=== PATIENT | female | born 1960 | race Caucasian/White ===

== ENCOUNTER 2018-05-20 10:42 | Inpatient (IN) ==
[2018-05-20] MEDS ORDERED: ACETAMINOPHEN 325 MG TABLET PO PRN (11:16)
[2018-05-20] MEDS ORDERED: ONDANSETRON 4 MG/2 ML VIAL IV PRN (11:16)
[2018-05-20] MEDS: ALBUTEROL/IPRATROPIUM 3 ML NEB RESP TX SCH ×2 (12:22→20:24)
[2018-05-20 13:11] LABS: Basophils # 0.1 10*3/uL (0.0-0.2); Basophils % 0.5 % (0.0-0.8); Eosinophils # 0.1 10*3/uL (0.0-0.87); Eosinophils % 0.3 % (0.00-10.9); Hematocrit 46.3 VOL% (35.7-47.0); Hemoglobin 14.9 GM/DL (12.0-16.0); Immature Granulocytes % 3.5 %; Immature Granulocytes Absolute 0.78 #; Lymphocytes # 3.3 10*3/uL (1.4-4.0); Lymphocytes % 14.6 % (21.3-54.2); Mean Corpuscular HGB Conc 32.2 GM/DL (32-36); Mean Corpuscular Hemoglobin 31 PG (27-34); Mean Corpuscular Volume 95.1 FL (87-102); Mean Platelet Volume 9.7 FL (9.6-12.0); Monocytes # 1.6 10*3/uL (0.11-0.8); Monocytes % 7.2 % (1.7-12.7); Neutrophils # 16.6 10*3/uL (1.4-7.4); Neutrophils % 73.9 % (38.7-73.9); Platelet Count 334 T/CUMM (130-400); Red Blood Count 4.87 MC/CUMM (3.8-5.5); White Blood Count 22.4 T/CUMM (4-12)
[2018-05-20 13:45] LABS: Albumin 3.8 G/DL (3.4-5.0); Bilirubin,Total 0.7 MG/DL (0.2-1.0); Calcium 8.7 MG/DL (8.5-10.1); Osmolality,Calculated 277.5 MOS/KG (273-304); Potassium 3.6 MMOL/L (3.5-5.1); Total Protein 7.3 G/DL (6.4-8.3)
[2018-05-20] MEDS: SODIUM CHLORIDE 0.9% 1,000 ML IV SCH ×2 (14:15→23:04)
[2018-05-20] MEDS: methylPREDNISolone SOD SUC 40 MG/1 ML VIAL IV SCH ×2 (14:16→21:18)
[2018-05-20] MEDS: cefTAZidime 1,000 MG in SYRINGE 1 EACH IV SCH ×2 (15:59→23:04)
[2018-05-20] MEDS: BENZONATATE 100 MG CAPSULE PO SCH ×2 (16:00→21:18)
[2018-05-20] MEDS ORDERED: POLYETHYLENE GLYCOL POWDER 17 GM PACK PO PRN (16:26)
[2018-05-20] MEDS ORDERED: ALPRAZolam 0.25 MG TABLET PO PRN (16:26)
[2018-05-20] MEDS ORDERED: CYCLOBENZAPRINE 10 MG TABLET PO PRN (16:26)
[2018-05-20] MEDS ORDERED: ALBUTEROL 2.5 MG/3 ML NEB RESP TX PRN (16:26)
[2018-05-20] MEDS: DEXTROMETHORPHAN ER 6 MG/ML 90 ML/BOTTLE PO PRN (16:28)
[2018-05-20 18:27] LABS: Lymphocytes 16 % (20-55); Segmented Neutrophils 79 % (50-85); Total Cells Counted 100
[2018-05-20 18:32] LABS: Anisocytosis Slight
[2018-05-20 18:33] LABS: Macrocytosis Slight
[2018-05-20 18:34] LABS: Polychromasia Slight
[2018-05-20 18:35] LABS: Platelet Estimate Normal
[2018-05-20] MEDS ORDERED: BENZONATATE 100 MG CAPSULE PO SCH (21:00)
[2018-05-20] MEDS: TOPIRAMATE 100 MG TABLET PO SCH (21:18)
[2018-05-20] MEDS: DOCUSATE SODIUM 100 MG CAPSULE PO SCH (21:18)
[2018-05-20] MEDS: THEOPHYLLINE ER 300 MG TABLET PO SCH (21:18)
[2018-05-20] MEDS: POTASSIUM CHLORIDE 10 MEQ TABLET PO SCH (21:18)
[2018-05-20] MEDS: ACETAMINOPHEN 325 MG TABLET PO PRN (23:07)
[2018-05-21] MEDS: ALBUTEROL/IPRATROPIUM 3 ML NEB RESP TX SCH ×4 (00:39→19:07)
[2018-05-21] MEDS: methylPREDNISolone SOD SUC 40 MG/1 ML VIAL IV SCH ×3 (05:15→22:24)
[2018-05-21] MEDS: SODIUM CHLORIDE 0.9% 1,000 ML IV SCH ×3 (06:39→23:55)
[2018-05-21] MEDS: DEXTROMETHORPHAN ER 6 MG/ML 90 ML/BOTTLE PO PRN (06:40)
[2018-05-21] MEDS: CALCIUM (CITRATE)/VITAMIN D 200 MG-125 UNIT TABLET PO SCH (08:55)
[2018-05-21] MEDS: ESTRADIOL 2 MG TABLET PO SCH (08:56)
[2018-05-21] MEDS: BENZONATATE 100 MG CAPSULE PO SCH ×3 (08:56→22:26)
[2018-05-21] MEDS: DOCUSATE SODIUM 100 MG CAPSULE PO SCH ×2 (08:57→22:26)
[2018-05-21] MEDS: POTASSIUM CHLORIDE 10 MEQ TABLET PO SCH ×2 (08:58→22:26)
[2018-05-21] MEDS: FLUoxetine 20 MG CAPSULE PO SCH (08:58)
[2018-05-21] MEDS: TOPIRAMATE 100 MG TABLET PO SCH ×2 (08:58→22:26)
[2018-05-21] MEDS: ASCORBIC ACID 500 MG TABLET PO SCH (08:58)
[2018-05-21] MEDS: PANTOPRAZOLE 40 MG TABLET PO SCH (08:58)
[2018-05-21] MEDS: THEOPHYLLINE ER 300 MG TABLET PO SCH ×2 (09:00→22:26)
[2018-05-21] MEDS ORDERED: MIRABEGRON PO SCH (09:00)
[2018-05-21] MEDS ORDERED: PANTOPRAZOLE 40 MG TABLET PO SCH (09:00)
[2018-05-21] MEDS ORDERED: MOMETASONE 50 MCG NASAL SPRAY 17 GM BOTTLE BOTH NARES SCH (09:00)
[2018-05-21] MEDS: MOMETASONE 50 MCG NASAL SPRAY 17 GM BOTTLE BOTH NARES SCH (09:03)
[2018-05-21] MEDS: cefTAZidime 1,000 MG in SYRINGE 1 EACH IV SCH ×2 (09:03→16:27)
[2018-05-21] MEDS ORDERED: ALUMINUM/MAGNES/SIMETH MAX STR 30 ML UDCUP PO PRN (18:38)
[2018-05-22] MEDS: ALBUTEROL/IPRATROPIUM 3 ML NEB RESP TX SCH ×4 (00:11→19:11)
[2018-05-22] MEDS: cefTAZidime 1,000 MG in SYRINGE 1 EACH IV SCH ×3 (00:53→16:41)
[2018-05-22 05:11] LABS: Basophils # 0.1 10*3/uL (0.0-0.2); Basophils % 0.4 % (0.0-0.8); Hematocrit 42.2 VOL% (35.7-47.0); Hemoglobin 13.4 GM/DL (12.0-16.0); Immature Granulocytes % 3.8 %; Immature Granulocytes Absolute 0.64 #; Lymphocytes % 6.2 % (21.3-54.2); Mean Corpuscular HGB Conc 31.8 GM/DL (32-36); Mean Corpuscular Hemoglobin 31 PG (27-34); Mean Corpuscular Volume 96.8 FL (87-102); Mean Platelet Volume 10.1 FL (9.6-12.0); Monocytes # 0.7 10*3/uL (0.11-0.8); Monocytes % 4.1 % (1.7-12.7); Neutrophils # 14.3 10*3/uL (1.4-7.4); Neutrophils % 85.5 % (38.7-73.9); Platelet Count 280 T/CUMM (130-400); Red Blood Count 4.36 MC/CUMM (3.8-5.5); Red Cell Distribution Width 13.2 % (9.3-17.3); White Blood Count 16.8 T/CUMM (4-12)
[2018-05-22 05:32] LABS: Calcium 8.1 MG/DL (8.5-10.1); Osmolality,Calculated 279.5 MOS/KG (273-304)
[2018-05-22 05:57] LABS: Band Neutrophils 1 % (0-10); Lymphocytes 5 % (20-55); Segmented Neutrophils 89 % (50-85); Total Cells Counted 100
[2018-05-22 05:58] LABS: Macrocytosis Slight
[2018-05-22 05:59] LABS: Hypochromasia Slight; Platelet Estimate Normal
[2018-05-22] MEDS: methylPREDNISolone SOD SUC 40 MG/1 ML VIAL IV SCH ×3 (06:33→20:57)
[2018-05-22] MEDS: SODIUM CHLORIDE 0.9% 1,000 ML IV SCH (06:35)
[2018-05-22] MEDS: CALCIUM (CITRATE)/VITAMIN D 200 MG-125 UNIT TABLET PO SCH (08:43)
[2018-05-22] MEDS: BENZONATATE 100 MG CAPSULE PO SCH ×3 (08:43→20:55)
[2018-05-22] MEDS: THEOPHYLLINE ER 300 MG TABLET PO SCH ×2 (08:43→20:55)
[2018-05-22] MEDS: POTASSIUM CHLORIDE 10 MEQ TABLET PO SCH ×2 (08:43→20:56)
[2018-05-22] MEDS: TOPIRAMATE 100 MG TABLET PO SCH ×2 (08:44→20:55)
[2018-05-22] MEDS: FLUoxetine 20 MG CAPSULE PO SCH (08:44)
[2018-05-22] MEDS: ASCORBIC ACID 500 MG TABLET PO SCH (08:44)
[2018-05-22] MEDS: DOCUSATE SODIUM 100 MG CAPSULE PO SCH ×2 (08:44→20:56)
[2018-05-22] MEDS: ESTRADIOL 2 MG TABLET PO SCH (08:44)
[2018-05-22] MEDS: PANTOPRAZOLE 40 MG TABLET PO SCH (08:44)
[2018-05-22] MEDS: MOMETASONE 50 MCG NASAL SPRAY 17 GM BOTTLE BOTH NARES SCH (08:45)
[2018-05-22] MEDS: ACETAMINOPHEN 325 MG TABLET PO PRN (20:55)
[2018-05-23] MEDS: ALBUTEROL/IPRATROPIUM 3 ML NEB RESP TX SCH ×2 (00:26→07:11)
[2018-05-23] MEDS: cefTAZidime 1,000 MG in SYRINGE 1 EACH IV SCH ×2 (01:57→10:21)
[2018-05-23] MEDS: methylPREDNISolone SOD SUC 40 MG/1 ML VIAL IV SCH (06:48)
[2018-05-23 08:37] VITALS: BP 134/91
[2018-05-23] MEDS: POTASSIUM CHLORIDE 10 MEQ TABLET PO SCH (09:17)
[2018-05-23] MEDS: FLUoxetine 20 MG CAPSULE PO SCH (09:17)
[2018-05-23] MEDS: TOPIRAMATE 100 MG TABLET PO SCH (09:17)
[2018-05-23] MEDS: DOCUSATE SODIUM 100 MG CAPSULE PO SCH (09:17)
[2018-05-23] MEDS: ESTRADIOL 2 MG TABLET PO SCH (09:17)
[2018-05-23] MEDS: BENZONATATE 100 MG CAPSULE PO SCH (09:17)
[2018-05-23] MEDS: ASCORBIC ACID 500 MG TABLET PO SCH (09:17)
[2018-05-23] MEDS: PANTOPRAZOLE 40 MG TABLET PO SCH (09:17)
[2018-05-23] MEDS: THEOPHYLLINE ER 300 MG TABLET PO SCH (09:17)
[2018-05-23] MEDS: MOMETASONE 50 MCG NASAL SPRAY 17 GM BOTTLE BOTH NARES SCH (09:18)
[2018-05-23] MEDS: CALCIUM (CITRATE)/VITAMIN D 200 MG-125 UNIT TABLET PO SCH (09:30)
[2018-05-23] MEDS: CEFDINIR 300 MG CAPSULE PO SCH ×2 (10:22→11:33)
[2018-05-24] MEDS ORDERED: predniSONE 20 MG TABLET PO SCH (09:00)
== END 2018-05-23 11:43 | disposition home or self-care (01) | DRG 190 ==
LOC: N.2W 11:53 → N.2E 14:58
PROVIDERS: ADMIT Family Medicine; ATTEND Family Medicine

== ENCOUNTER 2019-06-06 15:44 | Inpatient (IN) ==
[2019-06-06] MEDS ORDERED: ALBUTEROL/IPRATROPIUM 3 ML NEB RESP TX STA (15:57)
[2019-06-06] MEDS ORDERED: methylPREDNISolone SOD SUC 125 MG/2 ML VIAL IV STA (16:34)
[2019-06-06] MEDS ORDERED: MAGNESIUM SULF RIDER 2 GM in PREMIX 1 EACH IV STA (16:35)
[2019-06-06] MEDS ORDERED: ASPIRIN CHEW 81 MG TABLET PO STA (16:37)
[2019-06-06] MEDS ORDERED: MORPHINE 4 MG/1 ML VIAL IV STA (16:37)
[2019-06-06] MEDS ORDERED: AZITHROMYCIN INJ 500 MG in SODIUM CHLORIDE 0.9% 250 ML IV STA (16:37)
[2019-06-06] MEDS ORDERED: FAMOTIDINE 20 MG/2 ML VIAL IV STA (16:37)
[2019-06-06] MEDS ORDERED: ACETAMINOPHEN 500 MG TABLET PO STA (16:38)
[2019-06-06] MEDS ORDERED: ALBUTEROL 2.5 MG/3 ML NEB RESP TX STA (16:48)
[2019-06-06 16:50] LABS: Basophils % 0.3 % (0.0-0.8); Eosinophils % 0.1 % (0.00-10.9); Hematocrit 44.1 VOL% (35.7-47.0); Hemoglobin 14.3 GM/DL (12.0-16.0); Immature Granulocytes % 1.2 %; Immature Granulocytes Absolute 0.13 #; Lymphocytes # 0.8 10*3/uL (1.4-4.0); Lymphocytes % 7.3 % (21.3-54.2); Mean Corpuscular HGB Conc 32.4 GM/DL (32-36); Mean Corpuscular Volume 96.1 FL (87-102); Neutrophils % 82.1 % (38.7-73.9); Platelet Count 178 T/CUMM (130-400); Red Blood Count 4.59 MC/CUMM (3.8-5.5); Red Cell Distribution Width 14.1 % (9.3-17.3); White Blood Count 10.7 T/CUMM (4-12)
[2019-06-06 17:10] LABS: Albumin 3.6 G/DL (3.4-5.0); Bilirubin,Total 0.4 MG/DL (0.2-1.0); Calcium 8.4 MG/DL (8.5-10.1); Osmolality,Calculated 268.1 MOS/KG (273-304); Total Protein 7.4 G/DL (6.4-8.3)
[2019-06-06] MEDS ORDERED: ONDANSETRON 4 MG/2 ML VIAL IV PRN (17:57)
[2019-06-06] MEDS ORDERED: ACETAMINOPHEN 325 MG TABLET PO PRN (17:57)
[2019-06-06] MEDS ORDERED: IBUPROFEN 800 MG TABLET PO STA (18:37)
[2019-06-06] MEDS ORDERED: ALPRAZolam 0.25 MG TABLET PO PRN (20:33)
[2019-06-06] MEDS ORDERED: FUROSEMIDE 20 MG/2 ML VIAL IV ONE (20:47)
[2019-06-06] MEDS ORDERED: DOCUSATE SODIUM 100 MG CAPSULE PO SCH (21:00)
[2019-06-06] MEDS: BUDESONIDE 0.25 MG/2 ML NEB RESP TX SCH (21:01)
[2019-06-06] MEDS: methylPREDNISolone SOD SUC 40 MG/1 ML VIAL IV SCH (22:22)
[2019-06-06] MEDS: TOPIRAMATE 100 MG TABLET PO SCH (22:22)
[2019-06-06] MEDS: POTASSIUM CHLORIDE 10 MEQ TABLET PO SCH (22:27)
[2019-06-06] MEDS: METOPROLOL TARTRATE 25 MG TABLET PO SCH (22:29)
[2019-06-07] MEDS: ALBUTEROL/IPRATROPIUM 3 ML NEB RESP TX SCH ×4 (00:28→19:33)
[2019-06-07] MEDS: methylPREDNISolone SOD SUC 40 MG/1 ML VIAL IV SCH ×3 (03:52→20:18)
[2019-06-07 06:05] LABS: Basophils % 0.2 % (0.0-0.8); Hematocrit 39.1 VOL% (35.7-47.0); Hemoglobin 12.7 GM/DL (12.0-16.0); Immature Granulocytes % 1.1 %; Immature Granulocytes Absolute 0.07 #; Lymphocytes # 0.6 10*3/uL (1.4-4.0); Lymphocytes % 8.7 % (21.3-54.2); Mean Corpuscular HGB Conc 32.5 GM/DL (32-36); Mean Corpuscular Volume 96.8 FL (87-102); Mean Platelet Volume 9.5 FL (9.6-12.0); Monocytes % 3.1 % (1.7-12.7); Neutrophils % 86.9 % (38.7-73.9); Platelet Count 162 T/CUMM (130-400); Red Blood Count 4.04 MC/CUMM (3.8-5.5); Red Cell Distribution Width 13.9 % (9.3-17.3); White Blood Count 6.4 T/CUMM (4-12)
[2019-06-07 06:41] LABS: Calcium 7.9 MG/DL (8.5-10.1); Osmolality,Calculated 278.5 MOS/KG (273-304)
[2019-06-07] MEDS: BUDESONIDE 0.25 MG/2 ML NEB RESP TX SCH ×2 (07:11→19:33)
[2019-06-07] MEDS: THEOPHYLLINE ER 300 MG TABLET PO SCH ×2 (08:37→20:22)
[2019-06-07] MEDS: METOPROLOL TARTRATE 25 MG TABLET PO SCH ×2 (08:38→21:58)
[2019-06-07] MEDS: TOPIRAMATE 100 MG TABLET PO SCH ×2 (08:38→20:19)
[2019-06-07] MEDS: POTASSIUM CHLORIDE 10 MEQ TABLET PO SCH ×2 (08:39→20:18)
[2019-06-07] MEDS ORDERED: Mirabegron [Myrbetriq] 50 MG PO SCH (09:00)
[2019-06-07] MEDS ORDERED: FUROSEMIDE 20 MG/2 ML VIAL IV SCH (09:00)
[2019-06-07] MEDS ORDERED: PANTOPRAZOLE 40 MG TABLET PO SCH (09:00)
[2019-06-07] MEDS ORDERED: FLUoxetine 20 MG CAPSULE PO SCH (09:00)
[2019-06-07] MEDS: guaiFENesin 200 MG/10 ML UDCUP PO PRN ×2 (10:58→20:18)
[2019-06-07] MEDS: ACETAMINOPHEN 325 MG TABLET PO PRN (11:53)
[2019-06-07] MEDS ORDERED: AZITHROMYCIN INJ 250 MG in SODIUM CHLORIDE 0.9% 250 ML IV SCH (18:00)
[2019-06-08] MEDS: ALBUTEROL/IPRATROPIUM 3 ML NEB RESP TX SCH ×4 (00:18→20:25)
[2019-06-08] MEDS: methylPREDNISolone SOD SUC 40 MG/1 ML VIAL IV SCH ×2 (05:12→21:37)
[2019-06-08 05:20] LABS: Basophils % 0.1 % (0.0-0.8); Hematocrit 41.5 VOL% (35.7-47.0); Hemoglobin 13.7 GM/DL (12.0-16.0); Immature Granulocytes % 0.8 %; Immature Granulocytes Absolute 0.09 #; Lymphocytes # 0.9 10*3/uL (1.4-4.0); Lymphocytes % 7.8 % (21.3-54.2); Mean Corpuscular Volume 94.7 FL (87-102); Mean Platelet Volume 9.5 FL (9.6-12.0); Neutrophils % 84.3 % (38.7-73.9); Platelet Count 191 T/CUMM (130-400); Red Blood Count 4.38 MC/CUMM (3.8-5.5); Red Cell Distribution Width 13.7 % (9.3-17.3); White Blood Count 10.9 T/CUMM (4-12)
[2019-06-08 05:43] LABS: Calcium 8.8 MG/DL (8.5-10.1); Osmolality,Calculated 280.4 MOS/KG (273-304)
[2019-06-08] MEDS: guaiFENesin 200 MG/10 ML UDCUP PO PRN ×2 (05:57→23:49)
[2019-06-08] MEDS: ACETAMINOPHEN 325 MG TABLET PO PRN ×2 (06:01→19:40)
[2019-06-08] MEDS: BUDESONIDE 0.25 MG/2 ML NEB RESP TX SCH (07:33)
[2019-06-08] MEDS ORDERED: AZITHROMYCIN 250 MG TABLET PO SCH (09:00)
[2019-06-08] MEDS ORDERED: BIOTIN 1000 MCG PO SCH (09:00)
[2019-06-08] MEDS ORDERED: predniSONE 20 MG TABLET PO SCH (09:00)
[2019-06-08] MEDS: FLUoxetine 20 MG CAPSULE PO SCH (09:52)
[2019-06-08] MEDS: CALCIUM (CITRATE)/VITAMIN D 200 MG-125 UNIT TABLET PO SCH (09:52)
[2019-06-08] MEDS: VITAMIN E 400 UNIT CAPSULE PO SCH (09:52)
[2019-06-08] MEDS: THEOPHYLLINE ER 300 MG TABLET PO SCH ×2 (09:52→21:37)
[2019-06-08] MEDS: CYANOCOBALAMIN 500 MCG TABLET PO SCH (09:53)
[2019-06-08] MEDS: ASCORBIC ACID 500 MG TABLET PO SCH (09:53)
[2019-06-08] MEDS: POTASSIUM CHLORIDE 10 MEQ TABLET PO SCH ×2 (09:53→21:37)
[2019-06-08] MEDS: TOPIRAMATE 100 MG TABLET PO SCH ×2 (09:54→21:36)
[2019-06-08] MEDS: FUROSEMIDE 20 MG TABLET PO SCH (10:02)
[2019-06-08] MEDS: METOPROLOL TARTRATE 25 MG TABLET PO SCH ×2 (10:03→21:40)
[2019-06-08] MEDS: OMEPRAZOLE ODT 20 MG TABLET PER TUBE SCH (12:50)
[2019-06-08] MEDS: guaiFENesin/CODEINE 5 ML LIQUID PO PRN ×2 (15:31→19:37)
[2019-06-08] MEDS ORDERED: cefTRIAXone 1,000 MG VIAL IM SCH (18:00)
[2019-06-08] MEDS: cefTRIAXone 1,000 MG in SYRINGE 1 EACH IV SCH (18:10)
[2019-06-08] MEDS: FLUTICASONE/SALMETEROL 250-50 DISKUS 14 DOSE INH SCH (23:45)
[2019-06-09] MEDS: ALBUTEROL/IPRATROPIUM 3 ML NEB RESP TX SCH ×7 (00:43→23:03)
[2019-06-09] MEDS: guaiFENesin/CODEINE 5 ML LIQUID PO PRN ×4 (04:19→23:31)
[2019-06-09] MEDS: FLUTICASONE/SALMETEROL 250-50 DISKUS 14 DOSE INH SCH ×2 (09:19→20:12)
[2019-06-09] MEDS: DEXTROMETHORPHAN ER 6 MG/ML 90 ML/BOTTLE PO SCH ×2 (09:19→20:15)
[2019-06-09] MEDS: BENZONATATE 100 MG CAPSULE PO SCH ×3 (09:20→20:10)
[2019-06-09] MEDS: OMEPRAZOLE ODT 20 MG TABLET PER TUBE SCH (09:20)
[2019-06-09] MEDS: POTASSIUM CHLORIDE 10 MEQ TABLET PO SCH ×2 (09:20→20:10)
[2019-06-09] MEDS: METOPROLOL TARTRATE 25 MG TABLET PO SCH ×2 (09:20→20:10)
[2019-06-09] MEDS: THEOPHYLLINE ER 300 MG TABLET PO SCH ×2 (09:21→20:10)
[2019-06-09] MEDS: CALCIUM (CITRATE)/VITAMIN D 200 MG-125 UNIT TABLET PO SCH (09:21)
[2019-06-09] MEDS: CYANOCOBALAMIN 500 MCG TABLET PO SCH (09:21)
[2019-06-09] MEDS: VITAMIN E 400 UNIT CAPSULE PO SCH (09:21)
[2019-06-09] MEDS: FLUoxetine 20 MG CAPSULE PO SCH (09:21)
[2019-06-09] MEDS: DOCUSATE SODIUM 100 MG CAPSULE PO PRN (09:21)
[2019-06-09] MEDS: ASCORBIC ACID 500 MG TABLET PO SCH (09:22)
[2019-06-09] MEDS: methylPREDNISolone SOD SUC 40 MG/1 ML VIAL IV SCH ×2 (09:22→20:10)
[2019-06-09] MEDS: TOPIRAMATE 100 MG TABLET PO SCH ×2 (09:22→20:10)
[2019-06-09] MEDS: FUROSEMIDE 20 MG TABLET PO SCH (09:22)
[2019-06-09] MEDS: cefTRIAXone 1,000 MG in SYRINGE 1 EACH IV SCH (17:46)
[2019-06-10] MEDS: ALBUTEROL/IPRATROPIUM 3 ML NEB RESP TX SCH ×6 (03:23→23:05)
[2019-06-10] MEDS ORDERED: MEPERIDINE 50 MG/1 ML VIAL IM ONE (07:00)
[2019-06-10] MEDS ORDERED: GLYCOPYRROLATE 0.4 MG/2 ML VIAL IM ONE (07:00)
[2019-06-10] MEDS ORDERED: PROMETHAZINE 25 MG/1 ML VIAL IM ONE (07:00)
[2019-06-10] MEDS ORDERED: MIDAZOLAM 2 MG/2 ML VIAL ONE (07:11)
[2019-06-10] MEDS ORDERED: LIDOCAINE 2% VISCOUS 100 ML BOTTLE SWISH/SPIT ONE (07:30)
[2019-06-10] MEDS ORDERED: LIDOCAINE 1% 20 ML VIAL MISC INJ ONE (07:30)
[2019-06-10] MEDS ORDERED: LIDOCAINE 2% 20 ML VIAL RESP TX ONE (07:30)
[2019-06-10] MEDS ORDERED: MIDAZOLAM 2 MG/2 ML VIAL IV ONE (07:30)
[2019-06-10] MEDS: CALCIUM (CITRATE)/VITAMIN D 200 MG-125 UNIT TABLET PO SCH (11:27)
[2019-06-10] MEDS: FLUoxetine 20 MG CAPSULE PO SCH (11:28)
[2019-06-10] MEDS: BENZONATATE 100 MG CAPSULE PO SCH ×3 (11:28→21:27)
[2019-06-10] MEDS: ASCORBIC ACID 500 MG TABLET PO SCH (11:28)
[2019-06-10] MEDS: VITAMIN E 400 UNIT CAPSULE PO SCH (11:28)
[2019-06-10] MEDS: FUROSEMIDE 20 MG TABLET PO SCH (11:28)
[2019-06-10] MEDS: OMEPRAZOLE ODT 20 MG TABLET PER TUBE SCH (11:28)
[2019-06-10] MEDS: methylPREDNISolone SOD SUC 40 MG/1 ML VIAL IV SCH ×2 (11:29→21:27)
[2019-06-10] MEDS: THEOPHYLLINE ER 300 MG TABLET PO SCH ×2 (11:29→21:27)
[2019-06-10] MEDS: guaiFENesin/CODEINE 5 ML LIQUID PO PRN (11:29)
[2019-06-10] MEDS: CYANOCOBALAMIN 500 MCG TABLET PO SCH (11:29)
[2019-06-10] MEDS: TOPIRAMATE 100 MG TABLET PO SCH ×2 (11:29→21:27)
[2019-06-10] MEDS: FLUTICASONE/SALMETEROL 250-50 DISKUS 14 DOSE INH SCH ×2 (11:30→21:29)
[2019-06-10] MEDS: DEXTROMETHORPHAN ER 6 MG/ML 90 ML/BOTTLE PO SCH ×2 (11:30→21:27)
[2019-06-10] MEDS: POTASSIUM CHLORIDE 10 MEQ TABLET PO SCH ×2 (11:30→21:27)
[2019-06-10] MEDS ORDERED: PROMETHAZINE 25 MG/1 ML VIAL IM PRN (11:41)
[2019-06-10] MEDS: ONDANSETRON 4 MG/2 ML VIAL IV PRN (12:41)
[2019-06-10] MEDS: METOPROLOL TARTRATE 25 MG TABLET PO SCH ×2 (12:50→21:28)
[2019-06-10] MEDS: ACETAMINOPHEN 325 MG TABLET PO PRN (16:15)
[2019-06-10] MEDS: cefTRIAXone 1,000 MG in SYRINGE 1 EACH IV SCH (18:16)
[2019-06-11] MEDS: ALBUTEROL/IPRATROPIUM 3 ML NEB RESP TX SCH ×6 (03:06→23:51)
[2019-06-11 05:34] LABS: Basophils % 0.2 % (0.0-0.8); Hematocrit 41.5 VOL% (35.7-47.0); Hemoglobin 13.9 GM/DL (12.0-16.0); Immature Granulocytes % 1.6 %; Immature Granulocytes Absolute 0.14 #; Lymphocytes # 0.7 10*3/uL (1.4-4.0); Lymphocytes % 7.9 % (21.3-54.2); Mean Corpuscular HGB Conc 33.5 GM/DL (32-36); Mean Corpuscular Volume 93.5 FL (87-102); Mean Platelet Volume 9.5 FL (9.6-12.0); Monocytes % 5.1 % (1.7-12.7); Neutrophils % 85.2 % (38.7-73.9); Platelet Count 234 T/CUMM (130-400); Red Blood Count 4.44 MC/CUMM (3.8-5.5); Red Cell Distribution Width 13.3 % (9.3-17.3); White Blood Count 8.9 T/CUMM (4-12)
[2019-06-11 06:05] LABS: Calcium 8.8 MG/DL (8.5-10.1); Osmolality,Calculated 271.1 MOS/KG (273-304)
[2019-06-11] MEDS: OMEPRAZOLE ODT 20 MG TABLET PER TUBE SCH (08:27)
[2019-06-11] MEDS: guaiFENesin/CODEINE 5 ML LIQUID PO PRN ×2 (08:27→21:35)
[2019-06-11] MEDS: CYANOCOBALAMIN 500 MCG TABLET PO SCH (08:27)
[2019-06-11] MEDS: ASCORBIC ACID 500 MG TABLET PO SCH (08:28)
[2019-06-11] MEDS: POTASSIUM CHLORIDE 10 MEQ TABLET PO SCH ×2 (08:28→20:42)
[2019-06-11] MEDS: THEOPHYLLINE ER 300 MG TABLET PO SCH ×2 (08:28→20:43)
[2019-06-11] MEDS: METOPROLOL TARTRATE 25 MG TABLET PO SCH ×2 (08:28→20:42)
[2019-06-11] MEDS: DEXTROMETHORPHAN ER 6 MG/ML 90 ML/BOTTLE PO SCH ×2 (08:28→20:43)
[2019-06-11] MEDS: BENZONATATE 100 MG CAPSULE PO SCH ×3 (08:28→20:42)
[2019-06-11] MEDS: CALCIUM (CITRATE)/VITAMIN D 200 MG-125 UNIT TABLET PO SCH (08:29)
[2019-06-11] MEDS: FLUoxetine 20 MG CAPSULE PO SCH (08:29)
[2019-06-11] MEDS: TOPIRAMATE 100 MG TABLET PO SCH ×2 (08:29→20:43)
[2019-06-11] MEDS: methylPREDNISolone SOD SUC 40 MG/1 ML VIAL IV SCH ×2 (08:30→20:44)
[2019-06-11] MEDS: VITAMIN E 400 UNIT CAPSULE PO SCH (08:30)
[2019-06-11] MEDS: FUROSEMIDE 20 MG TABLET PO SCH (08:30)
[2019-06-11] MEDS: FLUTICASONE/SALMETEROL 250-50 DISKUS 14 DOSE INH SCH ×2 (08:36→20:44)
[2019-06-11] MEDS: ONDANSETRON 4 MG/2 ML VIAL IV PRN (11:31)
[2019-06-11] MEDS ORDERED: POTASSIUM CHLORIDE 20 MEQ TABLET PO ONE (13:00)
[2019-06-11] MEDS: DOCUSATE SODIUM 100 MG CAPSULE PO PRN (15:02)
[2019-06-11] MEDS: cefTRIAXone 1,000 MG in SYRINGE 1 EACH IV SCH (17:48)
[2019-06-11] MEDS: DORNASE ALFA 2.5 MG/2.5 ML VIAL RESP TX SCH (19:15)
[2019-06-12] MEDS: ALBUTEROL/IPRATROPIUM 3 ML NEB RESP TX SCH ×6 (03:19→22:59)
[2019-06-12] MEDS: DORNASE ALFA 2.5 MG/2.5 ML VIAL RESP TX SCH ×2 (07:10→20:13)
[2019-06-12] MEDS: VITAMIN E 400 UNIT CAPSULE PO SCH (08:50)
[2019-06-12] MEDS: BENZONATATE 100 MG CAPSULE PO SCH ×3 (08:50→20:59)
[2019-06-12] MEDS: FUROSEMIDE 20 MG TABLET PO SCH (08:50)
[2019-06-12] MEDS: THEOPHYLLINE ER 300 MG TABLET PO SCH ×2 (08:50→21:03)
[2019-06-12] MEDS: TOPIRAMATE 100 MG TABLET PO SCH ×2 (08:50→20:59)
[2019-06-12] MEDS: METOPROLOL TARTRATE 25 MG TABLET PO SCH ×2 (08:50→20:59)
[2019-06-12] MEDS: CALCIUM (CITRATE)/VITAMIN D 200 MG-125 UNIT TABLET PO SCH (08:50)
[2019-06-12] MEDS: CYANOCOBALAMIN 500 MCG TABLET PO SCH (08:51)
[2019-06-12] MEDS: OMEPRAZOLE ODT 20 MG TABLET PER TUBE SCH (08:51)
[2019-06-12] MEDS: methylPREDNISolone SOD SUC 40 MG/1 ML VIAL IV SCH ×2 (08:51→17:08)
[2019-06-12] MEDS: POTASSIUM CHLORIDE 10 MEQ TABLET PO SCH ×2 (08:51→20:58)
[2019-06-12] MEDS: FLUoxetine 20 MG CAPSULE PO SCH (08:51)
[2019-06-12] MEDS: ASCORBIC ACID 500 MG TABLET PO SCH (08:51)
[2019-06-12] MEDS: DEXTROMETHORPHAN ER 6 MG/ML 90 ML/BOTTLE PO SCH ×2 (08:52→21:04)
[2019-06-12] MEDS: FLUTICASONE/SALMETEROL 250-50 DISKUS 14 DOSE INH SCH ×2 (08:54→20:58)
[2019-06-12] MEDS: MAGNESIUM HYDROXIDE SUSP 30 ML UDCUP PO PRN (13:41)
[2019-06-12] MEDS: ONDANSETRON 4 MG/2 ML VIAL IV PRN (15:33)
[2019-06-12] MEDS: MEROPENEM 500 MG in SODIUM CHLORIDE 0.9% 100 ML IV SCH ×2 (15:38→20:59)
[2019-06-12] MEDS: guaiFENesin/CODEINE 5 ML LIQUID PO PRN (21:04)
[2019-06-13] MEDS: methylPREDNISolone SOD SUC 40 MG/1 ML VIAL IV SCH ×3 (01:24→17:11)
[2019-06-13] MEDS: guaiFENesin/CODEINE 5 ML LIQUID PO PRN ×2 (01:27→17:21)
[2019-06-13] MEDS: ALBUTEROL/IPRATROPIUM 3 ML NEB RESP TX SCH ×6 (02:56→23:30)
[2019-06-13] MEDS: MEROPENEM 500 MG in SODIUM CHLORIDE 0.9% 100 ML IV SCH ×4 (03:29→21:07)
[2019-06-13] MEDS: DORNASE ALFA 2.5 MG/2.5 ML VIAL RESP TX SCH ×2 (07:15→19:36)
[2019-06-13] MEDS: FLUTICASONE/SALMETEROL 250-50 DISKUS 14 DOSE INH SCH (09:54)
[2019-06-13] MEDS: FLUoxetine 20 MG CAPSULE PO SCH (09:55)
[2019-06-13] MEDS: BENZONATATE 100 MG CAPSULE PO SCH ×3 (09:55→21:06)
[2019-06-13] MEDS: CALCIUM (CITRATE)/VITAMIN D 200 MG-125 UNIT TABLET PO SCH (09:55)
[2019-06-13] MEDS: TOPIRAMATE 100 MG TABLET PO SCH ×2 (09:55→21:07)
[2019-06-13] MEDS: VITAMIN E 400 UNIT CAPSULE PO SCH (09:55)
[2019-06-13] MEDS: DOCUSATE SODIUM 100 MG CAPSULE PO PRN (09:56)
[2019-06-13] MEDS: FUROSEMIDE 20 MG TABLET PO SCH (09:56)
[2019-06-13] MEDS: METOPROLOL TARTRATE 25 MG TABLET PO SCH ×2 (09:56→21:07)
[2019-06-13] MEDS: POTASSIUM CHLORIDE 10 MEQ TABLET PO SCH ×2 (09:56→21:07)
[2019-06-13] MEDS: THEOPHYLLINE ER 300 MG TABLET PO SCH ×2 (09:56→21:06)
[2019-06-13] MEDS: OMEPRAZOLE ODT 20 MG TABLET PER TUBE SCH (09:56)
[2019-06-13] MEDS: ASCORBIC ACID 500 MG TABLET PO SCH (09:57)
[2019-06-13] MEDS: DEXTROMETHORPHAN ER 6 MG/ML 90 ML/BOTTLE PO SCH ×2 (09:57→21:02)
[2019-06-13] MEDS: NYSTATIN 500,000 UNIT/5 ML UDCUP SWISH/SWAL SCH ×4 (09:57→21:08)
[2019-06-13] MEDS: CYANOCOBALAMIN 500 MCG TABLET PO SCH (11:41)
[2019-06-13] MEDS: ONDANSETRON 4 MG/2 ML VIAL IV PRN (17:21)
[2019-06-13] MEDS: HYDROcodone/CHLORPHENIRAMINE ER 5 ML UDCUP PO PRN (21:06)
[2019-06-14] MEDS: methylPREDNISolone SOD SUC 40 MG/1 ML VIAL IV SCH ×3 (01:31→17:27)
[2019-06-14] MEDS: MEROPENEM 500 MG in SODIUM CHLORIDE 0.9% 100 ML IV SCH ×4 (03:08→20:35)
[2019-06-14] MEDS: ALBUTEROL/IPRATROPIUM 3 ML NEB RESP TX SCH ×5 (04:15→20:33)
[2019-06-14] MEDS: DORNASE ALFA 2.5 MG/2.5 ML VIAL RESP TX SCH ×2 (07:10→20:33)
[2019-06-14] MEDS: BUDESONIDE 0.5 MG/2 ML NEB RESP TX SCH ×2 (07:10→20:33)
[2019-06-14] MEDS: NYSTATIN 500,000 UNIT/5 ML UDCUP SWISH/SWAL SCH ×4 (09:39→20:31)
[2019-06-14] MEDS: POTASSIUM CHLORIDE 10 MEQ TABLET PO SCH ×2 (09:39→20:30)
[2019-06-14] MEDS: CALCIUM (CITRATE)/VITAMIN D 200 MG-125 UNIT TABLET PO SCH (09:39)
[2019-06-14] MEDS: CYANOCOBALAMIN 500 MCG TABLET PO SCH (09:40)
[2019-06-14] MEDS: VITAMIN E 400 UNIT CAPSULE PO SCH (09:40)
[2019-06-14] MEDS: BENZONATATE 100 MG CAPSULE PO SCH ×3 (09:40→20:30)
[2019-06-14] MEDS: FUROSEMIDE 20 MG TABLET PO SCH (09:40)
[2019-06-14] MEDS: FLUoxetine 20 MG CAPSULE PO SCH (09:40)
[2019-06-14] MEDS: THEOPHYLLINE ER 300 MG TABLET PO SCH ×2 (09:40→20:30)
[2019-06-14] MEDS: TOPIRAMATE 100 MG TABLET PO SCH ×2 (09:41→20:30)
[2019-06-14] MEDS: OMEPRAZOLE ODT 20 MG TABLET PER TUBE SCH (09:41)
[2019-06-14] MEDS: HYDROcodone/CHLORPHENIRAMINE ER 5 ML UDCUP PO PRN (09:41)
[2019-06-14] MEDS: ASCORBIC ACID 500 MG TABLET PO SCH (09:41)
[2019-06-14] MEDS: METOPROLOL TARTRATE 25 MG TABLET PO SCH ×2 (10:24→20:30)
[2019-06-14] MEDS: MAGNESIUM HYDROXIDE SUSP 30 ML UDCUP PO PRN (14:36)
[2019-06-14] MEDS ORDERED: BISACODYL 5 MG TABLET PO ONE (17:57)
[2019-06-14] MEDS: guaiFENesin/CODEINE 5 ML LIQUID PO PRN (21:58)
[2019-06-15] MEDS: ALBUTEROL/IPRATROPIUM 3 ML NEB RESP TX SCH ×7 (00:13→23:30)
[2019-06-15] MEDS: methylPREDNISolone SOD SUC 40 MG/1 ML VIAL IV SCH ×3 (01:33→16:21)
[2019-06-15] MEDS: guaiFENesin/CODEINE 5 ML LIQUID PO PRN ×5 (02:05→21:33)
[2019-06-15] MEDS: MEROPENEM 500 MG in SODIUM CHLORIDE 0.9% 100 ML IV SCH ×4 (03:02→21:25)
[2019-06-15] MEDS: DORNASE ALFA 2.5 MG/2.5 ML VIAL RESP TX SCH ×2 (07:25→19:45)
[2019-06-15] MEDS: BUDESONIDE 0.5 MG/2 ML NEB RESP TX SCH ×2 (07:33→19:45)
[2019-06-15 07:35] LABS: Basophils % 0.2 % (0.0-0.8); Hematocrit 43.2 VOL% (35.7-47.0); Hemoglobin 14.4 GM/DL (12.0-16.0); Immature Granulocytes % 16.3 %; Immature Granulocytes Absolute 2.13 #; Lymphocytes # 0.9 10*3/uL (1.4-4.0); Lymphocytes % 7.1 % (21.3-54.2); Mean Corpuscular HGB Conc 33.3 GM/DL (32-36); Mean Corpuscular Volume 94.3 FL (87-102); Mean Platelet Volume 9.4 FL (9.6-12.0); Neutrophils % 68.4 % (38.7-73.9); Platelet Count 420 T/CUMM (130-400); Red Blood Count 4.58 MC/CUMM (3.8-5.5); Red Cell Distribution Width 13.4 % (9.3-17.3); White Blood Count 13.1 T/CUMM (4-12)
[2019-06-15 07:54] LABS: Calcium 8.6 MG/DL (8.5-10.1); Osmolality,Calculated 277.7 MOS/KG (273-304)
[2019-06-15 07:57] LABS: Band Neutrophils 1 % (0-10); Lymphocytes 8 % (20-55); Segmented Neutrophils 83 % (50-85); Total Cells Counted 100
[2019-06-15 07:58] LABS: Hypochromasia Slight; Microcytosis Slight
[2019-06-15] MEDS: FUROSEMIDE 20 MG TABLET PO SCH (08:48)
[2019-06-15] MEDS: VITAMIN E 400 UNIT CAPSULE PO SCH (08:48)
[2019-06-15] MEDS: POTASSIUM CHLORIDE 10 MEQ TABLET PO SCH ×2 (08:48→21:34)
[2019-06-15] MEDS: BENZONATATE 100 MG CAPSULE PO SCH ×3 (08:48→21:34)
[2019-06-15] MEDS: FLUoxetine 20 MG CAPSULE PO SCH (08:48)
[2019-06-15] MEDS: CYANOCOBALAMIN 500 MCG TABLET PO SCH (08:48)
[2019-06-15] MEDS: OMEPRAZOLE ODT 20 MG TABLET PER TUBE SCH (08:49)
[2019-06-15] MEDS: METOPROLOL TARTRATE 25 MG TABLET PO SCH ×2 (08:49→21:34)
[2019-06-15] MEDS: TOPIRAMATE 100 MG TABLET PO SCH ×2 (08:49→21:35)
[2019-06-15] MEDS: CALCIUM (CITRATE)/VITAMIN D 200 MG-125 UNIT TABLET PO SCH (08:49)
[2019-06-15] MEDS: THEOPHYLLINE ER 300 MG TABLET PO SCH ×2 (08:49→21:35)
[2019-06-15] MEDS: NYSTATIN 500,000 UNIT/5 ML UDCUP SWISH/SWAL SCH ×4 (08:49→21:34)
[2019-06-15] MEDS: ASCORBIC ACID 500 MG TABLET PO SCH (08:49)
[2019-06-15] MEDS ORDERED: SKIN HEALING OINT (AQUAPHOR) 50 GM TUBE TOP PRN (13:07)
[2019-06-15] MEDS: ACETAMINOPHEN 325 MG TABLET PO PRN (17:29)
[2019-06-16] MEDS: methylPREDNISolone SOD SUC 40 MG/1 ML VIAL IV SCH ×3 (00:18→16:20)
[2019-06-16] MEDS: MEROPENEM 500 MG in SODIUM CHLORIDE 0.9% 100 ML IV SCH ×4 (03:58→21:27)
[2019-06-16] MEDS: ONDANSETRON 4 MG/2 ML VIAL IV PRN (04:06)
[2019-06-16] MEDS: guaiFENesin/CODEINE 5 ML LIQUID PO PRN ×4 (04:07→22:36)
[2019-06-16] MEDS: ALBUTEROL/IPRATROPIUM 3 ML NEB RESP TX SCH ×6 (04:34→22:47)
[2019-06-16] MEDS: BUDESONIDE 0.5 MG/2 ML NEB RESP TX SCH ×2 (07:30→19:08)
[2019-06-16] MEDS: DORNASE ALFA 2.5 MG/2.5 ML VIAL RESP TX SCH ×2 (07:45→19:15)
[2019-06-16] MEDS ORDERED: MIDAZOLAM 2 MG/2 ML VIAL ONE (07:57)
[2019-06-16] MEDS ORDERED: LIDOCAINE 2% 20 ML VIAL RESP TX ONE (08:00)
[2019-06-16] MEDS ORDERED: PROMETHAZINE 25 MG/1 ML VIAL IM ONE (08:00)
[2019-06-16] MEDS ORDERED: LIDOCAINE 2% VISCOUS 100 ML BOTTLE SWISH/SPIT ONE (08:00)
[2019-06-16] MEDS ORDERED: MIDAZOLAM 2 MG/2 ML VIAL IV ONE (08:00)
[2019-06-16] MEDS ORDERED: LIDOCAINE 1% 20 ML VIAL MISC INJ ONE (08:00)
[2019-06-16] MEDS ORDERED: MEPERIDINE 25 MG/1 ML VIAL IM ONE (08:00)
[2019-06-16] MEDS ORDERED: ALBUTEROL/IPRATROPIUM 3 ML NEB RESP TX ONE (08:54)
[2019-06-16] MEDS: METOPROLOL TARTRATE 25 MG TABLET PO SCH ×2 (10:55→21:26)
[2019-06-16] MEDS: ASCORBIC ACID 500 MG TABLET PO SCH (10:55)
[2019-06-16] MEDS: VITAMIN E 400 UNIT CAPSULE PO SCH (10:55)
[2019-06-16] MEDS: THEOPHYLLINE ER 300 MG TABLET PO SCH ×2 (10:55→21:27)
[2019-06-16] MEDS: BENZONATATE 100 MG CAPSULE PO SCH ×3 (10:55→21:27)
[2019-06-16] MEDS: POTASSIUM CHLORIDE 10 MEQ TABLET PO SCH ×2 (10:55→21:26)
[2019-06-16] MEDS: OMEPRAZOLE ODT 20 MG TABLET PER TUBE SCH (10:56)
[2019-06-16] MEDS: FLUoxetine 20 MG CAPSULE PO SCH (10:56)
[2019-06-16] MEDS: CYANOCOBALAMIN 500 MCG TABLET PO SCH (10:56)
[2019-06-16] MEDS: FUROSEMIDE 20 MG TABLET PO SCH (10:56)
[2019-06-16] MEDS: CALCIUM (CITRATE)/VITAMIN D 200 MG-125 UNIT TABLET PO SCH (10:56)
[2019-06-16] MEDS: TOPIRAMATE 100 MG TABLET PO SCH ×2 (10:56→21:26)
[2019-06-16] MEDS: NYSTATIN 500,000 UNIT/5 ML UDCUP SWISH/SWAL SCH ×4 (10:56→21:25)
[2019-06-16] MEDS: ACETAMINOPHEN 325 MG TABLET PO PRN (12:40)
[2019-06-17] MEDS: methylPREDNISolone SOD SUC 40 MG/1 ML VIAL IV SCH ×3 (00:45→16:45)
[2019-06-17] MEDS: ALBUTEROL/IPRATROPIUM 3 ML NEB RESP TX SCH ×6 (02:47→23:49)
[2019-06-17] MEDS: MEROPENEM 500 MG in SODIUM CHLORIDE 0.9% 100 ML IV SCH ×4 (03:54→20:48)
[2019-06-17] MEDS: guaiFENesin/CODEINE 5 ML LIQUID PO PRN ×5 (04:04→23:26)
[2019-06-17] MEDS: ACETAMINOPHEN 325 MG TABLET PO PRN (05:14)
[2019-06-17] MEDS: DORNASE ALFA 2.5 MG/2.5 ML VIAL RESP TX SCH ×2 (07:00→19:41)
[2019-06-17] MEDS: BUDESONIDE 0.5 MG/2 ML NEB RESP TX SCH ×2 (07:13→19:41)
[2019-06-17] MEDS: POTASSIUM CHLORIDE 10 MEQ TABLET PO SCH ×2 (08:48→20:46)
[2019-06-17] MEDS: FLUoxetine 20 MG CAPSULE PO SCH (08:48)
[2019-06-17] MEDS: THEOPHYLLINE ER 300 MG TABLET PO SCH ×2 (08:48→20:46)
[2019-06-17] MEDS: FUROSEMIDE 20 MG TABLET PO SCH (08:48)
[2019-06-17] MEDS: CALCIUM (CITRATE)/VITAMIN D 200 MG-125 UNIT TABLET PO SCH (08:48)
[2019-06-17] MEDS: CYANOCOBALAMIN 500 MCG TABLET PO SCH (08:48)
[2019-06-17] MEDS: METOPROLOL TARTRATE 25 MG TABLET PO SCH ×2 (08:48→20:46)
[2019-06-17] MEDS: VITAMIN E 400 UNIT CAPSULE PO SCH (08:48)
[2019-06-17] MEDS: ASCORBIC ACID 500 MG TABLET PO SCH (08:48)
[2019-06-17] MEDS: NYSTATIN 500,000 UNIT/5 ML UDCUP SWISH/SWAL SCH ×4 (08:49→20:46)
[2019-06-17] MEDS: OMEPRAZOLE ODT 20 MG TABLET PER TUBE SCH (08:49)
[2019-06-17] MEDS: TOPIRAMATE 100 MG TABLET PO SCH ×2 (08:49→20:46)
[2019-06-17] MEDS: BENZONATATE 100 MG CAPSULE PO SCH ×3 (08:49→20:46)
[2019-06-17] MEDS: ONDANSETRON 4 MG/2 ML VIAL IV PRN (08:58)
[2019-06-17] MEDS ORDERED: ALUM/MAG/SIMETH/LIDO VISC 1:1 30 ML BOTTLE PO ONE (13:30)
[2019-06-18] MEDS: methylPREDNISolone SOD SUC 40 MG/1 ML VIAL IV SCH ×3 (01:59→22:28)
[2019-06-18] MEDS: MEROPENEM 500 MG in SODIUM CHLORIDE 0.9% 100 ML IV SCH ×4 (01:59→20:36)
[2019-06-18] MEDS: guaiFENesin/CODEINE 5 ML LIQUID PO PRN ×4 (03:08→20:45)
[2019-06-18] MEDS: ALBUTEROL/IPRATROPIUM 3 ML NEB RESP TX SCH ×6 (03:30→23:43)
[2019-06-18] MEDS: BUDESONIDE 0.5 MG/2 ML NEB RESP TX SCH ×2 (07:54→20:32)
[2019-06-18] MEDS: DORNASE ALFA 2.5 MG/2.5 ML VIAL RESP TX SCH ×2 (07:54→20:43)
[2019-06-18] MEDS ORDERED: MAGNESIUM HYDROXIDE SUSP 30 ML UDCUP PO ONE (09:00)
[2019-06-18] MEDS: OMEPRAZOLE ODT 20 MG TABLET PER TUBE SCH (09:41)
[2019-06-18] MEDS: FLUoxetine 20 MG CAPSULE PO SCH (09:41)
[2019-06-18] MEDS: FUROSEMIDE 20 MG TABLET PO SCH (09:41)
[2019-06-18] MEDS: VITAMIN E 400 UNIT CAPSULE PO SCH (09:41)
[2019-06-18] MEDS: CALCIUM (CITRATE)/VITAMIN D 200 MG-125 UNIT TABLET PO SCH (09:41)
[2019-06-18] MEDS: THEOPHYLLINE ER 300 MG TABLET PO SCH ×2 (09:41→20:37)
[2019-06-18] MEDS: METOPROLOL TARTRATE 25 MG TABLET PO SCH ×2 (09:41→20:37)
[2019-06-18] MEDS: ASCORBIC ACID 500 MG TABLET PO SCH (09:42)
[2019-06-18] MEDS: CYANOCOBALAMIN 500 MCG TABLET PO SCH (09:42)
[2019-06-18] MEDS: POTASSIUM CHLORIDE 10 MEQ TABLET PO SCH ×2 (09:42→20:37)
[2019-06-18] MEDS: BENZONATATE 100 MG CAPSULE PO SCH ×3 (09:42→20:37)
[2019-06-18] MEDS: TOPIRAMATE 100 MG TABLET PO SCH ×2 (09:43→20:37)
[2019-06-18] MEDS: NYSTATIN 500,000 UNIT/5 ML UDCUP SWISH/SWAL SCH ×4 (09:43→20:37)
[2019-06-18] MEDS ORDERED: methylPREDNISolone SOD SUC 40 MG/1 ML VIAL ONE (13:39)
[2019-06-19] MEDS: MEROPENEM 500 MG in SODIUM CHLORIDE 0.9% 100 ML IV SCH ×2 (03:04→08:37)
[2019-06-19] MEDS: ALBUTEROL/IPRATROPIUM 3 ML NEB RESP TX SCH ×3 (03:15→11:20)
[2019-06-19] MEDS: BUDESONIDE 0.5 MG/2 ML NEB RESP TX SCH (07:39)
[2019-06-19] MEDS: DORNASE ALFA 2.5 MG/2.5 ML VIAL RESP TX SCH (07:39)
[2019-06-19] MEDS: NYSTATIN 500,000 UNIT/5 ML UDCUP SWISH/SWAL SCH (08:34)
[2019-06-19] MEDS: OMEPRAZOLE ODT 20 MG TABLET PER TUBE SCH (08:34)
[2019-06-19] MEDS: FLUoxetine 20 MG CAPSULE PO SCH (08:34)
[2019-06-19] MEDS: CALCIUM (CITRATE)/VITAMIN D 200 MG-125 UNIT TABLET PO SCH (08:34)
[2019-06-19] MEDS: POTASSIUM CHLORIDE 10 MEQ TABLET PO SCH (08:35)
[2019-06-19] MEDS: TOPIRAMATE 100 MG TABLET PO SCH (08:35)
[2019-06-19] MEDS: CYANOCOBALAMIN 500 MCG TABLET PO SCH (08:35)
[2019-06-19] MEDS: THEOPHYLLINE ER 300 MG TABLET PO SCH (08:35)
[2019-06-19] MEDS: VITAMIN E 400 UNIT CAPSULE PO SCH (08:35)
[2019-06-19] MEDS: BENZONATATE 100 MG CAPSULE PO SCH (08:35)
[2019-06-19] MEDS: FUROSEMIDE 20 MG TABLET PO SCH (08:35)
[2019-06-19] MEDS: METOPROLOL TARTRATE 25 MG TABLET PO SCH (08:36)
[2019-06-19] MEDS: ASCORBIC ACID 500 MG TABLET PO SCH (08:36)
[2019-06-19] MEDS: methylPREDNISolone SOD SUC 40 MG/1 ML VIAL IV SCH (08:36)
[2019-06-19] MEDS: guaiFENesin/CODEINE 5 ML LIQUID PO PRN (11:20)
[2019-06-19 11:39] VITALS: BP 104/77
== END 2019-06-19 13:30 | disposition home or self-care (01) | DRG 190 ==
LOC: N.ED 15:44 → N.EDINP 17:57 → N.2E 18:25
PROVIDERS: ADMIT Family Medicine; ATTEND Family Medicine

== ENCOUNTER 2020-11-28 11:51 | Inpatient (IN) ==
[2020-11-28] MEDS ORDERED: ONDANSETRON 4 MG/2 ML VIAL IV PRN (12:18)
[2020-11-28] MEDS ORDERED: DOCUSATE SODIUM 100 MG CAPSULE PO PRN (12:22)
[2020-11-28 13:07] LABS: Basophils # 0.1 10*3/uL (0.0-0.2); Basophils % 0.9 % (0.0-0.8); Eosinophils # 0.1 10*3/uL (0.0-0.87); Hematocrit 43.5 VOL% (35.7-47.0); Hemoglobin 13.8 GM/DL (12.0-16.0); Immature Granulocytes % 4.7 %; Immature Granulocytes Absolute 0.48 #; Lymphocytes # 0.9 10*3/uL (1.4-4.0); Lymphocytes % 8.5 % (21.3-54.2); Mean Corpuscular HGB Conc 31.7 GM/DL (32-36); Mean Corpuscular Volume 96.9 FL (87-102); Mean Platelet Volume 9.1 FL (9.6-12.0); Monocytes % 10.5 % (1.7-12.7); Neutrophils % 74.4 % (38.7-73.9); Platelet Count 220 T/CUMM (130-400); Red Blood Count 4.49 MC/CUMM (3.8-5.5); Red Cell Distribution Width 15.9 % (9.3-17.3); White Blood Count 10.3 T/CUMM (4-12)
[2020-11-28 13:37] LABS: Albumin 3.6 G/DL (3.4-5.0); Bilirubin,Total 0.7 MG/DL (0.20-1.00); Calcium 7.9 MG/DL (8.5-10.1); Osmolality,Calculated 277.3 MOS/KG (273-304); Potassium 3.9 MMOL/L (3.5-5.1); Total Protein 6.7 G/DL (6.4-8.2)
[2020-11-28] MEDS: methylPREDNISolone SOD SUC 40 MG/1 ML VIAL IV SCH ×2 (14:45→22:17)
[2020-11-28] MEDS: ENOXAPARIN 30 MG/0.3 ML SYRINGE SUBCUT SCH (14:48)
[2020-11-28] MEDS: SODIUM CHLORIDE 0.9% 1,000 ML IV SCH (14:48)
[2020-11-28] MEDS: ALBUTEROL/IPRATROPIUM 3 ML NEB RESP TX SCH ×2 (15:18→19:19)
[2020-11-28] MEDS: CEFEPIME 2,000 MG in SODIUM CHLORIDE 0.9% 100 ML IV SCH ×2 (16:00→22:17)
[2020-11-28] MEDS: ACETAMINOPHEN 325 MG TABLET PO PRN (20:14)
[2020-11-29] MEDS: ALBUTEROL/IPRATROPIUM 3 ML NEB RESP TX SCH ×4 (01:10→18:31)
[2020-11-29] MEDS: methylPREDNISolone SOD SUC 40 MG/1 ML VIAL IV SCH ×3 (05:11→21:31)
[2020-11-29] MEDS: SODIUM CHLORIDE 0.9% 1,000 ML IV SCH ×2 (05:11→15:32)
[2020-11-29] MEDS: CEFEPIME 2,000 MG in SODIUM CHLORIDE 0.9% 100 ML IV SCH ×3 (05:11→21:33)
[2020-11-29] MEDS ORDERED: OIL IM SCH (07:00)
[2020-11-29] MEDS ORDERED: TESTOSTERONE CYPIONATE 200 MG/ML IM SCH (07:00)
[2020-11-29] MEDS ORDERED: BIOTIN 1000 MCG PO SCH (09:00)
[2020-11-29] MEDS ORDERED: CALCIUM (CITRATE)/VITAMIN D 200 MG-125 UNIT TABLET PO SCH (09:00)
[2020-11-29] MEDS: FLUTICASONE/SALMETEROL 500-50 DISKUS 14 DOSE INH SCH ×2 (09:27→21:33)
[2020-11-29] MEDS: MOMETASONE 50 MCG NASAL SPRAY 17 GM BOTTLE BOTH NARES SCH ×2 (09:27→21:33)
[2020-11-29] MEDS: THEOPHYLLINE ER 300 MG TABLET PO SCH ×2 (09:28→21:32)
[2020-11-29] MEDS: VITAMIN E 400 UNIT CAPSULE PO SCH (09:28)
[2020-11-29] MEDS: ASCORBIC ACID 500 MG TABLET PO SCH (09:28)
[2020-11-29] MEDS: CALCIUM (CARBONATE)/VITAMIN D 600 MG-400 UNIT TABLET PO SCH (09:28)
[2020-11-29] MEDS: CYANOCOBALAMIN 500 MCG TABLET PO SCH (09:28)
[2020-11-29] MEDS: POTASSIUM CHLORIDE 10 MEQ TABLET PO SCH ×2 (09:29→21:31)
[2020-11-29] MEDS: PANTOPRAZOLE 40 MG TABLET PO SCH (09:29)
[2020-11-29] MEDS: LOSARTAN 25 MG TABLET PO SCH (09:29)
[2020-11-29] MEDS: guaiFENesin/CODEINE 5 ML LIQUID PO PRN (10:11)
[2020-11-29] MEDS: FLUoxetine 20 MG CAPSULE PO SCH (10:12)
[2020-11-29] MEDS: TOPIRAMATE 100 MG TABLET PO SCH ×2 (10:12→21:31)
[2020-11-29] MEDS: BENZONATATE 100 MG CAPSULE PO SCH ×3 (10:12→21:31)
[2020-11-29] MEDS: ESTRADIOL 2 MG TABLET PO SCH (10:13)
[2020-11-29] MEDS: MIRABEGRON 50 MG PO SCH (10:30)
[2020-11-29] MEDS: ENOXAPARIN 30 MG/0.3 ML SYRINGE SUBCUT SCH (13:06)
[2020-11-29] MEDS: IPRATROPIUM 500 MCG/2.5 ML NEB RESP TX SCH ×2 (17:52→20:41)
[2020-11-29] MEDS: DEXTROMETHORPHAN ER 6 MG/ML 90 ML/BOTTLE PO PRN (21:38)
[2020-11-30] MEDS: ALBUTEROL/IPRATROPIUM 3 ML NEB RESP TX SCH (02:10)
[2020-11-30 05:00] LABS: Basophils # 0.1 10*3/uL (0.0-0.2); Basophils % 0.3 % (0.0-0.8); Hematocrit 44.3 VOL% (35.7-47.0); Hemoglobin 13.7 GM/DL (12.0-16.0); Immature Granulocytes % 2.9 %; Immature Granulocytes Absolute 0.45 #; Lymphocytes # 0.8 10*3/uL (1.4-4.0); Mean Corpuscular HGB Conc 30.9 GM/DL (32-36); Mean Corpuscular Volume 97.6 FL (87-102); Mean Platelet Volume 9.6 FL (9.6-12.0); Monocytes % 7.6 % (1.7-12.7); Neutrophils % 84.2 % (38.7-73.9); Platelet Count 240 T/CUMM (130-400); Red Blood Count 4.54 MC/CUMM (3.8-5.5); Red Cell Distribution Width 16.1 % (9.3-17.3); White Blood Count 15.8 T/CUMM (4-12)
[2020-11-30] MEDS: CEFEPIME 2,000 MG in SODIUM CHLORIDE 0.9% 100 ML IV SCH ×3 (05:08→22:00)
[2020-11-30] MEDS: methylPREDNISolone SOD SUC 40 MG/1 ML VIAL IV SCH ×3 (05:08→21:13)
[2020-11-30 05:28] LABS: Calcium 7.9 MG/DL (8.5-10.1); Osmolality,Calculated 280.3 MOS/KG (273-304); Potassium 4.3 MMOL/L (3.5-5.1)
[2020-11-30] MEDS: SODIUM CHLORIDE 0.9% 1,000 ML IV SCH ×2 (06:22→19:43)
[2020-11-30] MEDS: CYANOCOBALAMIN 500 MCG TABLET PO SCH (08:04)
[2020-11-30] MEDS: FLUoxetine 20 MG CAPSULE PO SCH (08:05)
[2020-11-30] MEDS: POTASSIUM CHLORIDE 10 MEQ TABLET PO SCH ×2 (08:05→21:14)
[2020-11-30] MEDS: CALCIUM (CARBONATE)/VITAMIN D 600 MG-400 UNIT TABLET PO SCH (08:05)
[2020-11-30] MEDS: THEOPHYLLINE ER 300 MG TABLET PO SCH ×2 (08:05→21:14)
[2020-11-30] MEDS: TOPIRAMATE 100 MG TABLET PO SCH ×2 (08:05→21:15)
[2020-11-30] MEDS: VITAMIN E 400 UNIT CAPSULE PO SCH (08:05)
[2020-11-30] MEDS: ESTRADIOL 2 MG TABLET PO SCH (08:06)
[2020-11-30] MEDS: LOSARTAN 25 MG TABLET PO SCH (08:06)
[2020-11-30] MEDS: BENZONATATE 100 MG CAPSULE PO SCH ×3 (08:06→21:15)
[2020-11-30] MEDS: FLUTICASONE/SALMETEROL 500-50 DISKUS 14 DOSE INH SCH ×2 (08:06→23:45)
[2020-11-30] MEDS: PANTOPRAZOLE 40 MG TABLET PO SCH (08:06)
[2020-11-30] MEDS: ALBUTEROL INHALER 18 GM INH SCH ×3 (08:06→21:40)
[2020-11-30] MEDS: ASCORBIC ACID 500 MG TABLET PO SCH ×3 (08:06→21:15)
[2020-11-30] MEDS: MOMETASONE 50 MCG NASAL SPRAY 17 GM BOTTLE BOTH NARES SCH ×2 (08:07→21:45)
[2020-11-30] MEDS: MIRABEGRON 50 MG PO SCH (08:08)
[2020-11-30] MEDS: FAMOTIDINE 20 MG TABLET PO SCH ×2 (09:06→21:15)
[2020-11-30] MEDS: CHOLECALCIFEROL 1,000 UNIT TABLET PO SCH (09:06)
[2020-11-30] MEDS: CETIRIZINE 10 MG TABLET PO SCH (09:06)
[2020-11-30] MEDS: ZINC GLUCONATE 50 MG TABLET PO SCH (09:06)
[2020-11-30] MEDS: ENOXAPARIN 40 MG/0.4 ML SYRINGE SUBCUT SCH (11:21)
[2020-11-30] MEDS: ALPRAZolam 0.25 MG TABLET PO PRN (11:21)
[2020-11-30] MEDS ORDERED: ALBUTEROL 2.5 MG/3 ML NEB RESP TX SCH (19:00)
[2020-12-01] MEDS: ALBUTEROL INHALER 18 GM INH SCH ×4 (00:53→19:22)
[2020-12-01] MEDS: guaiFENesin/CODEINE 5 ML LIQUID PO PRN ×2 (02:57→18:38)
[2020-12-01] MEDS: methylPREDNISolone SOD SUC 40 MG/1 ML VIAL IV SCH ×3 (04:46→21:48)
[2020-12-01] MEDS: CEFEPIME 2,000 MG in SODIUM CHLORIDE 0.9% 100 ML IV SCH ×3 (06:13→21:50)
[2020-12-01] MEDS ORDERED: PROMETHAZINE 25 MG/1 ML VIAL IM ONE (07:30)
[2020-12-01] MEDS ORDERED: MEPERIDINE 50 MG/1 ML VIAL IM ONE (07:30)
[2020-12-01] MEDS ORDERED: LIDOCAINE 2% 20 ML VIAL RESP TX ONE (07:45)
[2020-12-01] MEDS ORDERED: LIDOCAINE 1% 20 ML VIAL MISC INJ ONE (07:45)
[2020-12-01] MEDS ORDERED: LIDOCAINE 2% VISCOUS 100 ML BOTTLE SWISH/SPIT ONE (07:45)
[2020-12-01] MEDS ORDERED: MIDAZOLAM 2 MG/2 ML VIAL IV ONE (07:45)
[2020-12-01] MEDS: MIRABEGRON 50 MG PO SCH (09:52)
[2020-12-01] MEDS: MOMETASONE 50 MCG NASAL SPRAY 17 GM BOTTLE BOTH NARES SCH ×2 (09:52→21:46)
[2020-12-01] MEDS: FLUTICASONE/SALMETEROL 500-50 DISKUS 14 DOSE INH SCH ×2 (09:52→21:46)
[2020-12-01] MEDS: SODIUM CHLORIDE 0.9% 1,000 ML IV SCH (09:52)
[2020-12-01] MEDS: ESTRADIOL 2 MG TABLET PO SCH (10:04)
[2020-12-01] MEDS: LOSARTAN 25 MG TABLET PO SCH (10:04)
[2020-12-01] MEDS: POTASSIUM CHLORIDE 10 MEQ TABLET PO SCH ×2 (10:04→21:46)
[2020-12-01] MEDS: FAMOTIDINE 20 MG TABLET PO SCH ×2 (10:04→21:45)
[2020-12-01] MEDS: FLUoxetine 20 MG CAPSULE PO SCH (10:04)
[2020-12-01] MEDS: CALCIUM (CARBONATE)/VITAMIN D 600 MG-400 UNIT TABLET PO SCH (10:04)
[2020-12-01] MEDS: CHOLECALCIFEROL 1,000 UNIT TABLET PO SCH (10:05)
[2020-12-01] MEDS: CETIRIZINE 10 MG TABLET PO SCH (10:05)
[2020-12-01] MEDS: TOPIRAMATE 100 MG TABLET PO SCH ×2 (10:05→21:46)
[2020-12-01] MEDS: ZINC GLUCONATE 50 MG TABLET PO SCH (10:05)
[2020-12-01] MEDS: THEOPHYLLINE ER 300 MG TABLET PO SCH ×2 (10:05→21:46)
[2020-12-01] MEDS: VITAMIN E 400 UNIT CAPSULE PO SCH (10:05)
[2020-12-01] MEDS: CYANOCOBALAMIN 500 MCG TABLET PO SCH (10:05)
[2020-12-01] MEDS: ASCORBIC ACID 500 MG TABLET PO SCH ×2 (10:05→21:46)
[2020-12-01] MEDS: BENZONATATE 100 MG CAPSULE PO SCH ×3 (10:05→21:46)
[2020-12-01] MEDS: ENOXAPARIN 40 MG/0.4 ML SYRINGE SUBCUT SCH (12:38)
[2020-12-01] MEDS ORDERED: REMDESIVIR 200 MG in SODIUM CHLORIDE 0.9% 210 ML IV ONE (13:00)
[2020-12-02] MEDS: SODIUM CHLORIDE 0.9% 1,000 ML IV SCH ×2 (01:16→13:13)
[2020-12-02] MEDS: ALBUTEROL INHALER 18 GM INH SCH ×4 (01:16→19:31)
[2020-12-02 05:14] LABS: Basophils % 0.2 % (0.0-0.8); Hematocrit 40.1 VOL% (35.7-47.0); Hemoglobin 12.5 GM/DL (12.0-16.0); Immature Granulocytes % 2.3 %; Lymphocytes # 0.4 10*3/uL (1.4-4.0); Mean Corpuscular HGB Conc 31.2 GM/DL (32-36); Mean Corpuscular Volume 96.4 FL (87-102); Mean Platelet Volume 9.6 FL (9.6-12.0); Monocytes % 6.8 % (1.7-12.7); Neutrophils % 85.7 % (38.7-73.9); Platelet Count 199 T/CUMM (130-400); Red Blood Count 4.16 MC/CUMM (3.8-5.5); Red Cell Distribution Width 16.6 % (9.3-17.3); White Blood Count 8.6 T/CUMM (4-12)
[2020-12-02 05:38] LABS: Alanine Aminotransferase 32 U/L (13-56); Albumin 2.9 G/DL (3.4-5.0); Alkaline Phosphatase 52 U/L (45-117); Aspartate Amino Transferase 22 U/L (0-37); Bilirubin,Total < 0.39 MG/DL (0.20-1.00); Blood Urea Nitrogen 14 MG/DL (7-18); Calcium 7.5 MG/DL (8.5-10.1); Carbon Dioxide 21 MMOL/L (21-32); Estimated Glom Filtration Rate 86 ML/MIN; Glucose 164 MG/DL (74-106); Osmolality,Calculated 283.4 MOS/KG (273-304); Sodium 140 MMOL/L (136-145); Total Protein 6.1 G/DL (6.4-8.2)
[2020-12-02] MEDS: methylPREDNISolone SOD SUC 40 MG/1 ML VIAL IV SCH ×3 (05:45→13:17)
[2020-12-02] MEDS: CEFEPIME 2,000 MG in SODIUM CHLORIDE 0.9% 100 ML IV SCH ×2 (05:45→17:33)
[2020-12-02] MEDS: MOMETASONE 50 MCG NASAL SPRAY 17 GM BOTTLE BOTH NARES SCH ×2 (09:01→21:30)
[2020-12-02] MEDS: CETIRIZINE 10 MG TABLET PO SCH (09:01)
[2020-12-02] MEDS: ASCORBIC ACID 500 MG TABLET PO SCH ×2 (09:01→21:30)
[2020-12-02] MEDS: LOSARTAN 25 MG TABLET PO SCH (09:01)
[2020-12-02] MEDS: ZINC GLUCONATE 50 MG TABLET PO SCH (09:01)
[2020-12-02] MEDS: VITAMIN E 400 UNIT CAPSULE PO SCH (09:01)
[2020-12-02] MEDS: FLUoxetine 20 MG CAPSULE PO SCH (09:01)
[2020-12-02] MEDS: THEOPHYLLINE ER 300 MG TABLET PO SCH ×2 (09:01→21:30)
[2020-12-02] MEDS: REMDESIVIR 100 MG in SODIUM CHLORIDE 0.9% 100 ML IV SCH (09:01)
[2020-12-02] MEDS: BENZONATATE 100 MG CAPSULE PO SCH ×3 (09:01→21:30)
[2020-12-02] MEDS: TOPIRAMATE 100 MG TABLET PO SCH ×2 (09:01→21:30)
[2020-12-02] MEDS: FAMOTIDINE 20 MG TABLET PO SCH ×2 (09:01→21:30)
[2020-12-02] MEDS: FLUTICASONE/SALMETEROL 500-50 DISKUS 14 DOSE INH SCH ×2 (09:01→21:30)
[2020-12-02] MEDS: CHOLECALCIFEROL 1,000 UNIT TABLET PO SCH (09:01)
[2020-12-02] MEDS: ESTRADIOL 2 MG TABLET PO SCH (09:01)
[2020-12-02] MEDS: CYANOCOBALAMIN 500 MCG TABLET PO SCH (09:01)
[2020-12-02] MEDS: CALCIUM (CARBONATE)/VITAMIN D 600 MG-400 UNIT TABLET PO SCH (09:01)
[2020-12-02] MEDS: POTASSIUM CHLORIDE 10 MEQ TABLET PO SCH ×2 (09:01→21:30)
[2020-12-02] MEDS: MIRABEGRON 50 MG PO SCH (09:53)
[2020-12-02] MEDS: ENOXAPARIN 40 MG/0.4 ML SYRINGE SUBCUT SCH (13:16)
[2020-12-02] MEDS: guaiFENesin/CODEINE 5 ML LIQUID PO PRN (21:36)
[2020-12-03] MEDS: ALBUTEROL INHALER 18 GM INH SCH ×4 (01:56→18:24)
[2020-12-03] MEDS: methylPREDNISolone SOD SUC 40 MG/1 ML VIAL IV SCH ×2 (01:57→14:33)
[2020-12-03] MEDS: CEFEPIME 2,000 MG in SODIUM CHLORIDE 0.9% 100 ML IV SCH ×3 (02:40→17:04)
[2020-12-03] MEDS: SODIUM CHLORIDE 0.9% 1,000 ML IV SCH ×2 (04:35→19:05)
[2020-12-03] MEDS: THEOPHYLLINE ER 300 MG TABLET PO SCH ×2 (08:56→21:10)
[2020-12-03] MEDS: POTASSIUM CHLORIDE 10 MEQ TABLET PO SCH ×2 (08:56→21:10)
[2020-12-03] MEDS: ZINC GLUCONATE 50 MG TABLET PO SCH (08:56)
[2020-12-03] MEDS: CYANOCOBALAMIN 500 MCG TABLET PO SCH (08:56)
[2020-12-03] MEDS: CHOLECALCIFEROL 1,000 UNIT TABLET PO SCH (08:57)
[2020-12-03] MEDS: CALCIUM (CARBONATE)/VITAMIN D 600 MG-400 UNIT TABLET PO SCH (08:57)
[2020-12-03] MEDS: FLUoxetine 20 MG CAPSULE PO SCH (08:57)
[2020-12-03] MEDS: FAMOTIDINE 20 MG TABLET PO SCH ×2 (08:57→21:10)
[2020-12-03] MEDS: ESTRADIOL 2 MG TABLET PO SCH (08:57)
[2020-12-03] MEDS: ASCORBIC ACID 500 MG TABLET PO SCH ×2 (08:57→21:10)
[2020-12-03] MEDS: VITAMIN E 400 UNIT CAPSULE PO SCH (08:57)
[2020-12-03] MEDS: BENZONATATE 100 MG CAPSULE PO SCH ×3 (08:57→21:10)
[2020-12-03] MEDS: LOSARTAN 25 MG TABLET PO SCH (08:58)
[2020-12-03] MEDS: guaiFENesin/CODEINE 5 ML LIQUID PO PRN ×2 (08:58→21:09)
[2020-12-03] MEDS: TOPIRAMATE 100 MG TABLET PO SCH ×2 (08:58→21:10)
[2020-12-03] MEDS: CETIRIZINE 10 MG TABLET PO SCH (08:58)
[2020-12-03] MEDS: MOMETASONE 50 MCG NASAL SPRAY 17 GM BOTTLE BOTH NARES SCH ×2 (10:16→21:12)
[2020-12-03] MEDS: FLUTICASONE/SALMETEROL 500-50 DISKUS 14 DOSE INH SCH ×2 (10:16→21:12)
[2020-12-03] MEDS: MIRABEGRON 50 MG PO SCH (10:16)
[2020-12-03] MEDS: REMDESIVIR 100 MG in SODIUM CHLORIDE 0.9% 100 ML IV SCH (10:28)
[2020-12-03] MEDS: ENOXAPARIN 40 MG/0.4 ML SYRINGE SUBCUT SCH (11:31)
[2020-12-03] MEDS ORDERED: AZITHROMYCIN 250 MG TABLET PO ONE (12:38)
[2020-12-03] MEDS ORDERED: ALBUTEROL/IPRATROPIUM 3 ML NEB RESP TX SCH (19:00)
[2020-12-04] MEDS: CEFEPIME 2,000 MG in SODIUM CHLORIDE 0.9% 100 ML IV SCH ×3 (00:13→21:49)
[2020-12-04] MEDS: ALBUTEROL INHALER 18 GM INH SCH ×4 (00:14→20:14)
[2020-12-04] MEDS: ALBUTEROL/IPRATROPIUM 3 ML NEB RESP TX SCH ×6 (00:46→20:33)
[2020-12-04] MEDS: methylPREDNISolone SOD SUC 40 MG/1 ML VIAL IV SCH ×2 (00:48→14:00)
[2020-12-04] MEDS: FLUoxetine 20 MG CAPSULE PO SCH (09:55)
[2020-12-04] MEDS: BENZONATATE 100 MG CAPSULE PO SCH ×3 (09:55→20:27)
[2020-12-04] MEDS: guaiFENesin/CODEINE 5 ML LIQUID PO PRN ×2 (09:55→20:26)
[2020-12-04] MEDS: ZINC GLUCONATE 50 MG TABLET PO SCH (09:56)
[2020-12-04] MEDS: THEOPHYLLINE ER 300 MG TABLET PO SCH ×2 (09:56→20:27)
[2020-12-04] MEDS: CETIRIZINE 10 MG TABLET PO SCH (09:56)
[2020-12-04] MEDS: CHOLECALCIFEROL 1,000 UNIT TABLET PO SCH (09:57)
[2020-12-04] MEDS: AZITHROMYCIN 250 MG TABLET PO SCH (09:57)
[2020-12-04] MEDS: CYANOCOBALAMIN 500 MCG TABLET PO SCH (09:57)
[2020-12-04] MEDS: LOSARTAN 25 MG TABLET PO SCH (09:57)
[2020-12-04] MEDS: VITAMIN E 400 UNIT CAPSULE PO SCH (09:58)
[2020-12-04] MEDS: POTASSIUM CHLORIDE 10 MEQ TABLET PO SCH ×2 (09:58→20:26)
[2020-12-04] MEDS: FAMOTIDINE 20 MG TABLET PO SCH ×2 (09:58→20:27)
[2020-12-04] MEDS: ESTRADIOL 2 MG TABLET PO SCH (09:58)
[2020-12-04] MEDS: TOPIRAMATE 100 MG TABLET PO SCH ×2 (09:58→20:26)
[2020-12-04] MEDS: CALCIUM (CARBONATE)/VITAMIN D 600 MG-400 UNIT TABLET PO SCH (09:58)
[2020-12-04] MEDS: ASCORBIC ACID 500 MG TABLET PO SCH ×2 (09:58→20:26)
[2020-12-04] MEDS: MOMETASONE 50 MCG NASAL SPRAY 17 GM BOTTLE BOTH NARES SCH ×2 (09:59→20:28)
[2020-12-04] MEDS: FLUTICASONE/SALMETEROL 500-50 DISKUS 14 DOSE INH SCH ×2 (09:59→20:28)
[2020-12-04] MEDS: MIRABEGRON 50 MG PO SCH (10:00)
[2020-12-04] MEDS: REMDESIVIR 100 MG in SODIUM CHLORIDE 0.9% 100 ML IV SCH (10:27)
[2020-12-04] MEDS: ENOXAPARIN 40 MG/0.4 ML SYRINGE SUBCUT SCH (14:00)
[2020-12-04] MEDS: SODIUM CHLORIDE 0.9% 1,000 ML IV SCH (14:01)
[2020-12-04] MEDS: ALPRAZolam 0.25 MG TABLET PO PRN (17:56)
[2020-12-05] MEDS: ALBUTEROL/IPRATROPIUM 3 ML NEB RESP TX SCH ×7 (00:14→23:45)
[2020-12-05] MEDS: ALBUTEROL INHALER 18 GM INH SCH ×4 (00:29→18:51)
[2020-12-05] MEDS: methylPREDNISolone SOD SUC 40 MG/1 ML VIAL IV SCH ×2 (00:30→12:50)
[2020-12-05] MEDS: SODIUM CHLORIDE 0.9% 1,000 ML IV SCH ×3 (02:55→20:04)
[2020-12-05 04:05] LABS: Basophils # 0.1 10*3/uL (0.0-0.2); Basophils % 0.5 % (0.0-0.8); Hematocrit 40.8 VOL% (35.7-47.0); Immature Granulocytes % 4.5 %; Immature Granulocytes Absolute 0.51 #; Lymphocytes # 0.7 10*3/uL (1.4-4.0); Lymphocytes % 6.2 % (21.3-54.2); Mean Corpuscular HGB Conc 31.9 GM/DL (32-36); Mean Corpuscular Volume 95.1 FL (87-102); Mean Platelet Volume 9.5 FL (9.6-12.0); Monocytes % 5.8 % (1.7-12.7); Platelet Count 214 T/CUMM (130-400); Red Blood Count 4.29 MC/CUMM (3.8-5.5); Red Cell Distribution Width 16.3 % (9.3-17.3); White Blood Count 11.4 T/CUMM (4-12)
[2020-12-05 04:37] LABS: Albumin 2.8 G/DL (3.4-5.0); Bilirubin,Total 0.5 MG/DL (0.20-1.00); Calcium 7.8 MG/DL (8.5-10.1); Osmolality,Calculated 281.4 MOS/KG (273-304); Potassium 3.9 MMOL/L (3.5-5.1)
[2020-12-05 04:42] LABS: Band Neutrophils 1 % (0-10); Hypochromasia Slight; Lymphocytes 6 % (20-55); Myelocytes 1 %; Segmented Neutrophils 87 % (50-85); Total Cells Counted 100
[2020-12-05 04:43] LABS: Microcytosis Slight; Platelet Estimate Normal
[2020-12-05] MEDS: CEFEPIME 2,000 MG in SODIUM CHLORIDE 0.9% 100 ML IV SCH ×3 (05:18→21:06)
[2020-12-05] MEDS: guaiFENesin/CODEINE 5 ML LIQUID PO PRN (09:14)
[2020-12-05] MEDS: DOCUSATE SODIUM 100 MG CAPSULE PO SCH ×2 (09:49→20:35)
[2020-12-05] MEDS: FLUTICASONE/SALMETEROL 500-50 DISKUS 14 DOSE INH SCH ×2 (09:49→20:35)
[2020-12-05] MEDS: CALCIUM (CARBONATE)/VITAMIN D 600 MG-400 UNIT TABLET PO SCH (09:49)
[2020-12-05] MEDS: MIRABEGRON 50 MG PO SCH (09:50)
[2020-12-05] MEDS: POTASSIUM CHLORIDE 10 MEQ TABLET PO SCH ×2 (09:50→20:35)
[2020-12-05] MEDS: LOSARTAN 25 MG TABLET PO SCH (09:50)
[2020-12-05] MEDS: ESTRADIOL 2 MG TABLET PO SCH (09:50)
[2020-12-05] MEDS: CHOLECALCIFEROL 1,000 UNIT TABLET PO SCH (09:51)
[2020-12-05] MEDS: FLUoxetine 20 MG CAPSULE PO SCH (09:51)
[2020-12-05] MEDS: TOPIRAMATE 100 MG TABLET PO SCH ×2 (09:51→20:35)
[2020-12-05] MEDS: FAMOTIDINE 20 MG TABLET PO SCH ×2 (09:51→20:35)
[2020-12-05] MEDS: ASCORBIC ACID 500 MG TABLET PO SCH ×2 (09:51→20:35)
[2020-12-05] MEDS: BENZONATATE 100 MG CAPSULE PO SCH ×3 (09:51→20:35)
[2020-12-05] MEDS: ZINC GLUCONATE 50 MG TABLET PO SCH (09:51)
[2020-12-05] MEDS: VITAMIN E 400 UNIT CAPSULE PO SCH (09:51)
[2020-12-05] MEDS: CYANOCOBALAMIN 500 MCG TABLET PO SCH (09:51)
[2020-12-05] MEDS: THEOPHYLLINE ER 300 MG TABLET PO SCH ×2 (09:51→20:35)
[2020-12-05] MEDS: MOMETASONE 50 MCG NASAL SPRAY 17 GM BOTTLE BOTH NARES SCH ×2 (09:51→20:35)
[2020-12-05] MEDS: REMDESIVIR 100 MG in SODIUM CHLORIDE 0.9% 100 ML IV SCH (09:52)
[2020-12-05] MEDS: CETIRIZINE 10 MG TABLET PO SCH (09:52)
[2020-12-05] MEDS: AZITHROMYCIN 250 MG TABLET PO SCH (09:52)
[2020-12-05] MEDS: ENOXAPARIN 40 MG/0.4 ML SYRINGE SUBCUT SCH (12:49)
[2020-12-06] MEDS: ALBUTEROL INHALER 18 GM INH SCH ×4 (00:01→22:52)
[2020-12-06] MEDS: methylPREDNISolone SOD SUC 40 MG/1 ML VIAL IV SCH ×2 (00:36→12:52)
[2020-12-06] MEDS: ALBUTEROL/IPRATROPIUM 3 ML NEB RESP TX SCH ×6 (02:58→23:50)
[2020-12-06] MEDS: FLUTICASONE/SALMETEROL 500-50 DISKUS 14 DOSE INH SCH ×2 (09:41→20:52)
[2020-12-06] MEDS: THEOPHYLLINE ER 300 MG TABLET PO SCH ×2 (09:42→20:53)
[2020-12-06] MEDS: BENZONATATE 100 MG CAPSULE PO SCH ×3 (09:42→20:53)
[2020-12-06] MEDS: CALCIUM (CARBONATE)/VITAMIN D 600 MG-400 UNIT TABLET PO SCH (09:43)
[2020-12-06] MEDS: AZITHROMYCIN 250 MG TABLET PO SCH (09:43)
[2020-12-06] MEDS: TOPIRAMATE 100 MG TABLET PO SCH ×2 (09:43→20:53)
[2020-12-06] MEDS: FLUoxetine 20 MG CAPSULE PO SCH (09:43)
[2020-12-06] MEDS: ASCORBIC ACID 500 MG TABLET PO SCH ×2 (09:43→20:54)
[2020-12-06] MEDS: CYANOCOBALAMIN 500 MCG TABLET PO SCH (09:44)
[2020-12-06] MEDS: VITAMIN E 400 UNIT CAPSULE PO SCH (09:44)
[2020-12-06] MEDS: CETIRIZINE 10 MG TABLET PO SCH (09:44)
[2020-12-06] MEDS: ZINC GLUCONATE 50 MG TABLET PO SCH (09:44)
[2020-12-06] MEDS: CHOLECALCIFEROL 1,000 UNIT TABLET PO SCH (09:44)
[2020-12-06] MEDS: POTASSIUM CHLORIDE 10 MEQ TABLET PO SCH ×2 (09:45→20:53)
[2020-12-06] MEDS: FAMOTIDINE 20 MG TABLET PO SCH ×2 (09:45→20:53)
[2020-12-06] MEDS: ESTRADIOL 2 MG TABLET PO SCH (09:45)
[2020-12-06] MEDS: LOSARTAN 25 MG TABLET PO SCH (09:45)
[2020-12-06] MEDS: DOCUSATE SODIUM 100 MG CAPSULE PO SCH ×2 (09:45→20:52)
[2020-12-06] MEDS: MOMETASONE 50 MCG NASAL SPRAY 17 GM BOTTLE BOTH NARES SCH ×2 (09:46→20:53)
[2020-12-06] MEDS: MIRABEGRON 50 MG PO SCH (09:46)
[2020-12-06] MEDS: SODIUM CHLORIDE 0.9% 1,000 ML IV SCH (10:08)
[2020-12-06] MEDS: ENOXAPARIN 40 MG/0.4 ML SYRINGE SUBCUT SCH (12:52)
[2020-12-06] MEDS: ALPRAZolam 0.25 MG TABLET PO PRN (13:25)
[2020-12-07] MEDS: ALBUTEROL INHALER 18 GM INH SCH ×4 (01:12→22:29)
[2020-12-07] MEDS: methylPREDNISolone SOD SUC 40 MG/1 ML VIAL IV SCH ×2 (01:45→14:20)
[2020-12-07] MEDS: ALBUTEROL/IPRATROPIUM 3 ML NEB RESP TX SCH ×6 (03:35→23:45)
[2020-12-07 05:02] LABS: Basophils % 0.1 % (0.0-0.8); Eosinophils # 0.1 10*3/uL (0.0-0.87); Eosinophils % 0.5 % (0.00-10.9); Hemoglobin 13.4 GM/DL (12.0-16.0); Immature Granulocytes % 9.7 %; Immature Granulocytes Absolute 1.37 #; Lymphocytes # 1.8 10*3/uL (1.4-4.0); Lymphocytes % 12.6 % (21.3-54.2); Mean Corpuscular HGB Conc 31.2 GM/DL (32-36); Mean Platelet Volume 9.8 FL (9.6-12.0); Monocytes % 8.2 % (1.7-12.7); Neutrophils % 68.9 % (38.7-73.9); Platelet Count 224 T/CUMM (130-400); Red Blood Count 4.48 MC/CUMM (3.8-5.5); Red Cell Distribution Width 16.3 % (9.3-17.3); White Blood Count 14.1 T/CUMM (4-12)
[2020-12-07] MEDS: DEXTROMETHORPHAN ER 6 MG/ML 90 ML/BOTTLE PO PRN (05:14)
[2020-12-07 05:32] LABS: Calcium 8.2 MG/DL (8.5-10.1); Osmolality,Calculated 284.1 MOS/KG (273-304); Potassium 3.7 MMOL/L (3.5-5.1)
[2020-12-07 05:43] LABS: Eosinophils 1 % (0-10); Lymphocytes 14 % (20-55); Platelet Estimate Normal; Segmented Neutrophils 74 % (50-85); Total Cells Counted 100
[2020-12-07] MEDS ORDERED: KETOROLAC 30 MG/1 ML VIAL IV ONE (08:34)
[2020-12-07] MEDS: CHOLECALCIFEROL 1,000 UNIT TABLET PO SCH (11:27)
[2020-12-07] MEDS: ESTRADIOL 2 MG TABLET PO SCH (11:28)
[2020-12-07] MEDS: BENZONATATE 100 MG CAPSULE PO SCH ×3 (11:28→21:27)
[2020-12-07] MEDS: POTASSIUM CHLORIDE 10 MEQ TABLET PO SCH ×2 (11:28→21:26)
[2020-12-07] MEDS: LOSARTAN 25 MG TABLET PO SCH (11:28)
[2020-12-07] MEDS: CALCIUM (CARBONATE)/VITAMIN D 600 MG-400 UNIT TABLET PO SCH (11:28)
[2020-12-07] MEDS: TOPIRAMATE 100 MG TABLET PO SCH ×2 (11:28→21:27)
[2020-12-07] MEDS: THEOPHYLLINE ER 300 MG TABLET PO SCH ×2 (11:28→21:27)
[2020-12-07] MEDS: FLUoxetine 20 MG CAPSULE PO SCH (11:28)
[2020-12-07] MEDS: VITAMIN E 400 UNIT CAPSULE PO SCH (11:28)
[2020-12-07] MEDS: DOCUSATE SODIUM 100 MG CAPSULE PO SCH ×2 (11:28→21:26)
[2020-12-07] MEDS: ASCORBIC ACID 500 MG TABLET PO SCH ×2 (11:29→21:27)
[2020-12-07] MEDS: AZITHROMYCIN 250 MG TABLET PO SCH (11:29)
[2020-12-07] MEDS: FLUTICASONE/SALMETEROL 500-50 DISKUS 14 DOSE INH SCH (11:29)
[2020-12-07] MEDS: CYANOCOBALAMIN 500 MCG TABLET PO SCH (11:29)
[2020-12-07] MEDS: FAMOTIDINE 20 MG TABLET PO SCH ×2 (11:29→21:27)
[2020-12-07] MEDS: ZINC GLUCONATE 50 MG TABLET PO SCH (11:29)
[2020-12-07] MEDS: CETIRIZINE 10 MG TABLET PO SCH (11:29)
[2020-12-07] MEDS: MIRABEGRON 50 MG PO SCH (13:51)
[2020-12-07] MEDS: MOMETASONE 50 MCG NASAL SPRAY 17 GM BOTTLE BOTH NARES SCH ×2 (13:52→21:27)
[2020-12-07] MEDS: ENOXAPARIN 40 MG/0.4 ML SYRINGE SUBCUT SCH (14:19)
[2020-12-07] MEDS: ALPRAZolam 0.25 MG TABLET PO PRN (14:20)
[2020-12-07] MEDS: ACETYLCYSTEINE 20% 800 MG/4 ML VIAL RESP TX SCH ×2 (15:20→23:45)
[2020-12-07] MEDS: ARFORMOTEROL 15 MCG/2 ML NEB RESP TX SCH (19:30)
[2020-12-08] MEDS: ALBUTEROL INHALER 18 GM INH SCH ×3 (02:53→20:03)
[2020-12-08] MEDS: methylPREDNISolone SOD SUC 40 MG/1 ML VIAL IV SCH ×2 (02:53→12:40)
[2020-12-08] MEDS: ALBUTEROL/IPRATROPIUM 3 ML NEB RESP TX SCH ×5 (03:00→21:50)
[2020-12-08] MEDS: DEXTROMETHORPHAN ER 6 MG/ML 90 ML/BOTTLE PO PRN (03:09)
[2020-12-08] MEDS: ALPRAZolam 0.25 MG TABLET PO PRN ×2 (03:10→21:20)
[2020-12-08] MEDS: ACETYLCYSTEINE 20% 800 MG/4 ML VIAL RESP TX SCH ×3 (08:10→21:50)
[2020-12-08] MEDS: ARFORMOTEROL 15 MCG/2 ML NEB RESP TX SCH ×2 (08:10→21:50)
[2020-12-08] MEDS: ZINC GLUCONATE 50 MG TABLET PO SCH (08:50)
[2020-12-08] MEDS: CYANOCOBALAMIN 500 MCG TABLET PO SCH (08:50)
[2020-12-08] MEDS: THEOPHYLLINE ER 300 MG TABLET PO SCH ×2 (08:50→20:57)
[2020-12-08] MEDS: ASCORBIC ACID 500 MG TABLET PO SCH ×2 (08:50→20:57)
[2020-12-08] MEDS: FLUoxetine 20 MG CAPSULE PO SCH (08:50)
[2020-12-08] MEDS: ESTRADIOL 2 MG TABLET PO SCH (08:51)
[2020-12-08] MEDS: LOSARTAN 25 MG TABLET PO SCH (08:51)
[2020-12-08] MEDS: VITAMIN E 400 UNIT CAPSULE PO SCH (08:51)
[2020-12-08] MEDS: DOCUSATE SODIUM 100 MG CAPSULE PO SCH ×2 (08:51→20:56)
[2020-12-08] MEDS: CHOLECALCIFEROL 1,000 UNIT TABLET PO SCH (08:51)
[2020-12-08] MEDS: BENZONATATE 100 MG CAPSULE PO SCH ×3 (08:51→20:57)
[2020-12-08] MEDS: POTASSIUM CHLORIDE 10 MEQ TABLET PO SCH ×2 (08:51→20:56)
[2020-12-08] MEDS: AZITHROMYCIN 250 MG TABLET PO SCH (08:51)
[2020-12-08] MEDS: CALCIUM (CARBONATE)/VITAMIN D 600 MG-400 UNIT TABLET PO SCH (08:51)
[2020-12-08] MEDS: FAMOTIDINE 20 MG TABLET PO SCH ×2 (08:51→20:57)
[2020-12-08] MEDS: CETIRIZINE 10 MG TABLET PO SCH (08:51)
[2020-12-08] MEDS: TOPIRAMATE 100 MG TABLET PO SCH ×2 (08:51→20:57)
[2020-12-08] MEDS: MOMETASONE 50 MCG NASAL SPRAY 17 GM BOTTLE BOTH NARES SCH ×2 (10:42→20:57)
[2020-12-08] MEDS: MIRABEGRON 50 MG PO SCH (10:44)
[2020-12-08] MEDS: ENOXAPARIN 40 MG/0.4 ML SYRINGE SUBCUT SCH (12:40)
[2020-12-09] MEDS: methylPREDNISolone SOD SUC 40 MG/1 ML VIAL IV SCH ×2 (01:45→13:04)
[2020-12-09] MEDS: ALBUTEROL/IPRATROPIUM 3 ML NEB RESP TX SCH ×7 (02:04→23:17)
[2020-12-09] MEDS: ALBUTEROL INHALER 18 GM INH SCH ×4 (02:13→21:14)
[2020-12-09 06:12] LABS: Basophils % 0.1 % (0.0-0.8); Eosinophils # 0.1 10*3/uL (0.0-0.87); Eosinophils % 0.3 % (0.00-10.9); Hematocrit 42.1 VOL% (35.7-47.0); Hemoglobin 13.7 GM/DL (12.0-16.0); Immature Granulocytes % 10.5 %; Immature Granulocytes Absolute 2.07 #; Mean Corpuscular HGB Conc 32.5 GM/DL (32-36); Mean Platelet Volume 9.7 FL (9.6-12.0); Monocytes % 5.6 % (1.7-12.7); Neutrophils % 78.5 % (38.7-73.9); Platelet Count 256 T/CUMM (130-400); Red Blood Count 4.48 MC/CUMM (3.8-5.5); Red Cell Distribution Width 16.4 % (9.3-17.3); White Blood Count 19.7 T/CUMM (4-12)
[2020-12-09] MEDS: ACETYLCYSTEINE 20% 800 MG/4 ML VIAL RESP TX SCH ×3 (07:00→23:17)
[2020-12-09] MEDS: ARFORMOTEROL 15 MCG/2 ML NEB RESP TX SCH ×2 (07:00→20:03)
[2020-12-09 07:46] LABS: Band Neutrophils 3 % (0-10); Hypochromasia Slight; Lymphocytes 5 % (20-55); Microcytosis Slight; Segmented Neutrophils 82 % (50-85); Total Cells Counted 100
[2020-12-09] MEDS: VITAMIN E 400 UNIT CAPSULE PO SCH (08:20)
[2020-12-09] MEDS: DOCUSATE SODIUM 100 MG CAPSULE PO SCH ×2 (08:20→21:14)
[2020-12-09] MEDS: POTASSIUM CHLORIDE 10 MEQ TABLET PO SCH ×2 (08:20→21:14)
[2020-12-09] MEDS: CALCIUM (CARBONATE)/VITAMIN D 600 MG-400 UNIT TABLET PO SCH (08:20)
[2020-12-09] MEDS: ZINC GLUCONATE 50 MG TABLET PO SCH (08:20)
[2020-12-09] MEDS: CHOLECALCIFEROL 1,000 UNIT TABLET PO SCH (08:20)
[2020-12-09] MEDS: ALPRAZolam 0.25 MG TABLET PO PRN (08:20)
[2020-12-09] MEDS: ESTRADIOL 2 MG TABLET PO SCH (08:20)
[2020-12-09] MEDS: MOMETASONE 50 MCG NASAL SPRAY 17 GM BOTTLE BOTH NARES SCH ×2 (08:20→21:14)
[2020-12-09] MEDS: THEOPHYLLINE ER 300 MG TABLET PO SCH ×2 (08:20→21:14)
[2020-12-09] MEDS: LOSARTAN 25 MG TABLET PO SCH (08:21)
[2020-12-09] MEDS: AZITHROMYCIN 250 MG TABLET PO SCH (08:21)
[2020-12-09] MEDS: FLUoxetine 20 MG CAPSULE PO SCH (08:21)
[2020-12-09] MEDS: CETIRIZINE 10 MG TABLET PO SCH (08:21)
[2020-12-09] MEDS: BENZONATATE 100 MG CAPSULE PO SCH ×3 (08:21→21:14)
[2020-12-09] MEDS: ASCORBIC ACID 500 MG TABLET PO SCH ×2 (08:21→21:14)
[2020-12-09] MEDS: CYANOCOBALAMIN 500 MCG TABLET PO SCH (08:21)
[2020-12-09] MEDS: TOPIRAMATE 100 MG TABLET PO SCH ×2 (08:22→21:14)
[2020-12-09] MEDS: FAMOTIDINE 20 MG TABLET PO SCH ×2 (08:22→21:14)
[2020-12-09] MEDS: MIRABEGRON 50 MG PO SCH (11:32)
[2020-12-09] MEDS: ENOXAPARIN 40 MG/0.4 ML SYRINGE SUBCUT SCH (13:04)
[2020-12-09] MEDS: guaiFENesin/CODEINE 5 ML LIQUID PO PRN ×2 (15:44→22:54)
[2020-12-10] MEDS: ALBUTEROL INHALER 18 GM INH SCH ×4 (01:20→20:58)
[2020-12-10] MEDS: methylPREDNISolone SOD SUC 40 MG/1 ML VIAL IV SCH ×2 (01:31→13:48)
[2020-12-10] MEDS: ALBUTEROL/IPRATROPIUM 3 ML NEB RESP TX SCH ×5 (04:27→20:13)
[2020-12-10] MEDS: ACETYLCYSTEINE 20% 800 MG/4 ML VIAL RESP TX SCH ×2 (07:10→15:00)
[2020-12-10] MEDS: ARFORMOTEROL 15 MCG/2 ML NEB RESP TX SCH ×2 (07:10→20:12)
[2020-12-10 07:22] LABS: Calcium 8.5 MG/DL (8.5-10.1); Osmolality,Calculated 276.8 MOS/KG (273-304); Potassium 4.3 MMOL/L (3.5-5.1)
[2020-12-10] MEDS ORDERED: PHENOL 1.4% THROAT SPRAY 177 ML BOTTLE PO PRN (07:39)
[2020-12-10] MEDS: FLUoxetine 20 MG CAPSULE PO SCH (09:30)
[2020-12-10] MEDS: CHOLECALCIFEROL 1,000 UNIT TABLET PO SCH (09:30)
[2020-12-10] MEDS: ZINC GLUCONATE 50 MG TABLET PO SCH (09:30)
[2020-12-10] MEDS: AZITHROMYCIN 250 MG TABLET PO SCH (09:30)
[2020-12-10] MEDS: ESTRADIOL 2 MG TABLET PO SCH (09:30)
[2020-12-10] MEDS: POTASSIUM CHLORIDE 10 MEQ TABLET PO SCH ×2 (09:30→20:58)
[2020-12-10] MEDS: BENZONATATE 100 MG CAPSULE PO SCH ×3 (09:30→20:58)
[2020-12-10] MEDS: MOMETASONE 50 MCG NASAL SPRAY 17 GM BOTTLE BOTH NARES SCH ×2 (09:30→20:58)
[2020-12-10] MEDS: LOSARTAN 25 MG TABLET PO SCH (09:30)
[2020-12-10] MEDS: FAMOTIDINE 20 MG TABLET PO SCH ×2 (09:30→20:58)
[2020-12-10] MEDS: DOCUSATE SODIUM 100 MG CAPSULE PO SCH ×2 (09:30→20:58)
[2020-12-10] MEDS: VITAMIN E 400 UNIT CAPSULE PO SCH (09:30)
[2020-12-10] MEDS: THEOPHYLLINE ER 300 MG TABLET PO SCH ×2 (09:30→20:58)
[2020-12-10] MEDS: TOPIRAMATE 100 MG TABLET PO SCH ×2 (09:30→20:58)
[2020-12-10] MEDS: ASCORBIC ACID 500 MG TABLET PO SCH ×2 (09:30→20:58)
[2020-12-10] MEDS: CETIRIZINE 10 MG TABLET PO SCH (09:30)
[2020-12-10] MEDS: ALPRAZolam 0.25 MG TABLET PO PRN ×2 (09:30→20:58)
[2020-12-10] MEDS: CYANOCOBALAMIN 500 MCG TABLET PO SCH (09:30)
[2020-12-10] MEDS: CALCIUM (CARBONATE)/VITAMIN D 600 MG-400 UNIT TABLET PO SCH (09:30)
[2020-12-10] MEDS: guaiFENesin/CODEINE 5 ML LIQUID PO PRN ×2 (09:50→15:40)
[2020-12-10] MEDS: MIRABEGRON 50 MG PO SCH (11:11)
[2020-12-10] MEDS: ENOXAPARIN 40 MG/0.4 ML SYRINGE SUBCUT SCH (11:48)
[2020-12-11] MEDS: ALBUTEROL/IPRATROPIUM 3 ML NEB RESP TX SCH ×7 (00:17→23:40)
[2020-12-11] MEDS: ACETYLCYSTEINE 20% 800 MG/4 ML VIAL RESP TX SCH ×4 (00:17→23:40)
[2020-12-11] MEDS: methylPREDNISolone SOD SUC 40 MG/1 ML VIAL IV SCH ×2 (01:11→12:43)
[2020-12-11] MEDS: ALBUTEROL INHALER 18 GM INH SCH ×4 (01:11→19:36)
[2020-12-11] MEDS: guaiFENesin/CODEINE 5 ML LIQUID PO PRN ×2 (01:11→21:24)
[2020-12-11 05:29] LABS: Basophils % 0.1 % (0.0-0.8); Eosinophils % 0.1 % (0.00-10.9); Hematocrit 42.1 VOL% (35.7-47.0); Hemoglobin 13.5 GM/DL (12.0-16.0); Immature Granulocytes % 9.9 %; Immature Granulocytes Absolute 2.01 #; Lymphocytes # 0.7 10*3/uL (1.4-4.0); Lymphocytes % 3.3 % (21.3-54.2); Mean Corpuscular HGB Conc 32.1 GM/DL (32-36); Mean Platelet Volume 9.4 FL (9.6-12.0); Monocytes % 4.6 % (1.7-12.7); Platelet Count 264 T/CUMM (130-400); Red Blood Count 4.48 MC/CUMM (3.8-5.5); Red Cell Distribution Width 16.2 % (9.3-17.3); White Blood Count 20.4 T/CUMM (4-12)
[2020-12-11 05:56] LABS: Calcium 8.2 MG/DL (8.5-10.1); Osmolality,Calculated 277.7 MOS/KG (273-304)
[2020-12-11 06:27] LABS: Anisocytosis 1+; Band Neutrophils 8 % (0-10); Lymphocytes 7 % (20-55); Platelet Estimate Normal; Segmented Neutrophils 79 % (50-85); Total Cells Counted 100
[2020-12-11 06:28] LABS: Macrocytosis 1+
[2020-12-11] MEDS: ARFORMOTEROL 15 MCG/2 ML NEB RESP TX SCH ×2 (08:13→19:50)
[2020-12-11] MEDS: ASCORBIC ACID 500 MG TABLET PO SCH ×2 (08:52→21:24)
[2020-12-11] MEDS: THEOPHYLLINE ER 300 MG TABLET PO SCH ×2 (08:52→21:22)
[2020-12-11] MEDS: FAMOTIDINE 20 MG TABLET PO SCH ×2 (08:52→21:24)
[2020-12-11] MEDS: TOPIRAMATE 100 MG TABLET PO SCH ×2 (08:52→21:22)
[2020-12-11] MEDS: ESTRADIOL 2 MG TABLET PO SCH (08:52)
[2020-12-11] MEDS: POTASSIUM CHLORIDE 10 MEQ TABLET PO SCH ×2 (08:52→21:23)
[2020-12-11] MEDS: CYANOCOBALAMIN 500 MCG TABLET PO SCH (08:52)
[2020-12-11] MEDS: VITAMIN E 400 UNIT CAPSULE PO SCH (08:52)
[2020-12-11] MEDS: CALCIUM (CARBONATE)/VITAMIN D 600 MG-400 UNIT TABLET PO SCH (08:52)
[2020-12-11] MEDS: AZITHROMYCIN 250 MG TABLET PO SCH (08:53)
[2020-12-11] MEDS: CETIRIZINE 10 MG TABLET PO SCH (08:53)
[2020-12-11] MEDS: FLUoxetine 20 MG CAPSULE PO SCH (08:53)
[2020-12-11] MEDS: LOSARTAN 25 MG TABLET PO SCH (08:53)
[2020-12-11] MEDS: ZINC GLUCONATE 50 MG TABLET PO SCH (08:53)
[2020-12-11] MEDS: DOCUSATE SODIUM 100 MG CAPSULE PO SCH ×2 (08:53→21:24)
[2020-12-11] MEDS: CHOLECALCIFEROL 1,000 UNIT TABLET PO SCH (08:53)
[2020-12-11] MEDS: BENZONATATE 100 MG CAPSULE PO SCH ×3 (08:53→21:23)
[2020-12-11] MEDS: MIRABEGRON 50 MG PO SCH (09:06)
[2020-12-11] MEDS: MOMETASONE 50 MCG NASAL SPRAY 17 GM BOTTLE BOTH NARES SCH ×2 (09:08→21:25)
[2020-12-11] MEDS: ENOXAPARIN 40 MG/0.4 ML SYRINGE SUBCUT SCH (12:42)
[2020-12-11] MEDS ORDERED: POTASSIUM CHLORIDE 20 MEQ TABLET PO SCH (21:00)
[2020-12-12] MEDS: ALBUTEROL INHALER 18 GM INH SCH ×4 (00:17→21:50)
[2020-12-12] MEDS: methylPREDNISolone SOD SUC 40 MG/1 ML VIAL IV SCH ×2 (00:46→13:08)
[2020-12-12] MEDS: ALBUTEROL/IPRATROPIUM 3 ML NEB RESP TX SCH ×6 (03:05→23:25)
[2020-12-12 03:18] LABS: Basophils % 0.1 % (0.0-0.8); Eosinophils # 0.1 10*3/uL (0.0-0.87); Eosinophils % 0.3 % (0.00-10.9); Hematocrit 44.1 VOL% (35.7-47.0); Hemoglobin 14.2 GM/DL (12.0-16.0); Immature Granulocytes % 9.7 %; Immature Granulocytes Absolute 1.89 #; Lymphocytes # 0.9 10*3/uL (1.4-4.0); Lymphocytes % 4.5 % (21.3-54.2); Mean Corpuscular HGB Conc 32.2 GM/DL (32-36); Mean Corpuscular Volume 94.4 FL (87-102); Mean Platelet Volume 9.6 FL (9.6-12.0); Monocytes % 5.3 % (1.7-12.7); Neutrophils % 80.1 % (38.7-73.9); Platelet Count 275 T/CUMM (130-400); Red Blood Count 4.67 MC/CUMM (3.8-5.5); Red Cell Distribution Width 16.2 % (9.3-17.3); White Blood Count 19.6 T/CUMM (4-12)
[2020-12-12 03:40] LABS: Calcium 8.3 MG/DL (8.5-10.1); Osmolality,Calculated 280.5 MOS/KG (273-304); Potassium 3.9 MMOL/L (3.5-5.1)
[2020-12-12 04:59] LABS: Band Neutrophils 2 % (0-10); Lymphocytes 5 % (20-55); Segmented Neutrophils 90 % (50-85); Total Cells Counted 100
[2020-12-12 05:00] LABS: Platelet Estimate Adequate
[2020-12-12] MEDS: ACETYLCYSTEINE 20% 800 MG/4 ML VIAL RESP TX SCH ×3 (07:33→23:25)
[2020-12-12] MEDS: ARFORMOTEROL 15 MCG/2 ML NEB RESP TX SCH ×2 (07:33→19:20)
[2020-12-12] MEDS: CETIRIZINE 10 MG TABLET PO SCH (08:18)
[2020-12-12] MEDS: CHOLECALCIFEROL 1,000 UNIT TABLET PO SCH (08:18)
[2020-12-12] MEDS: BENZONATATE 100 MG CAPSULE PO SCH ×3 (08:19→21:38)
[2020-12-12] MEDS: CALCIUM (CARBONATE)/VITAMIN D 600 MG-400 UNIT TABLET PO SCH (08:19)
[2020-12-12] MEDS: THEOPHYLLINE ER 300 MG TABLET PO SCH ×2 (08:19→21:38)
[2020-12-12] MEDS: FLUoxetine 20 MG CAPSULE PO SCH (08:19)
[2020-12-12] MEDS: POTASSIUM CHLORIDE 10 MEQ TABLET PO SCH ×2 (08:19→21:38)
[2020-12-12] MEDS: ZINC GLUCONATE 50 MG TABLET PO SCH (08:19)
[2020-12-12] MEDS: FAMOTIDINE 20 MG TABLET PO SCH ×2 (08:20→21:39)
[2020-12-12] MEDS: ASCORBIC ACID 500 MG TABLET PO SCH ×2 (08:20→21:39)
[2020-12-12] MEDS: ESTRADIOL 2 MG TABLET PO SCH (08:20)
[2020-12-12] MEDS: TOPIRAMATE 100 MG TABLET PO SCH ×2 (08:20→21:39)
[2020-12-12] MEDS: DOCUSATE SODIUM 100 MG CAPSULE PO SCH ×2 (08:20→21:39)
[2020-12-12] MEDS: LOSARTAN 25 MG TABLET PO SCH (08:20)
[2020-12-12] MEDS: VITAMIN E 400 UNIT CAPSULE PO SCH (08:20)
[2020-12-12] MEDS: CYANOCOBALAMIN 500 MCG TABLET PO SCH (08:20)
[2020-12-12] MEDS: MOMETASONE 50 MCG NASAL SPRAY 17 GM BOTTLE BOTH NARES SCH ×2 (08:20→21:42)
[2020-12-12] MEDS: MIRABEGRON 50 MG PO SCH (09:08)
[2020-12-12] MEDS: ENOXAPARIN 40 MG/0.4 ML SYRINGE SUBCUT SCH (12:03)
[2020-12-12] MEDS: ALPRAZolam 0.25 MG TABLET PO PRN (23:34)
[2020-12-13] MEDS: ALBUTEROL INHALER 18 GM INH SCH ×4 (01:21→19:20)
[2020-12-13] MEDS: methylPREDNISolone SOD SUC 40 MG/1 ML VIAL IV SCH ×3 (01:22→21:23)
[2020-12-13] MEDS: ALBUTEROL/IPRATROPIUM 3 ML NEB RESP TX SCH ×6 (03:30→23:10)
[2020-12-13] MEDS: ARFORMOTEROL 15 MCG/2 ML NEB RESP TX SCH ×2 (07:37→19:00)
[2020-12-13] MEDS: ACETYLCYSTEINE 20% 800 MG/4 ML VIAL RESP TX SCH ×3 (07:37→23:10)
[2020-12-13] MEDS: BENZONATATE 100 MG CAPSULE PO SCH ×3 (09:24→21:20)
[2020-12-13] MEDS: POTASSIUM CHLORIDE 10 MEQ TABLET PO SCH ×2 (09:24→21:20)
[2020-12-13] MEDS: THEOPHYLLINE ER 300 MG TABLET PO SCH ×2 (09:25→21:20)
[2020-12-13] MEDS: FAMOTIDINE 20 MG TABLET PO SCH ×2 (09:25→21:20)
[2020-12-13] MEDS: ESTRADIOL 2 MG TABLET PO SCH (09:25)
[2020-12-13] MEDS: TOPIRAMATE 100 MG TABLET PO SCH ×2 (09:25→21:20)
[2020-12-13] MEDS: ZINC GLUCONATE 50 MG TABLET PO SCH (09:25)
[2020-12-13] MEDS: LOSARTAN 25 MG TABLET PO SCH (09:25)
[2020-12-13] MEDS: VITAMIN E 400 UNIT CAPSULE PO SCH (09:25)
[2020-12-13] MEDS: ASCORBIC ACID 500 MG TABLET PO SCH ×2 (09:25→21:20)
[2020-12-13] MEDS: FLUoxetine 20 MG CAPSULE PO SCH (09:25)
[2020-12-13] MEDS: CHOLECALCIFEROL 1,000 UNIT TABLET PO SCH (09:25)
[2020-12-13] MEDS: CALCIUM (CARBONATE)/VITAMIN D 600 MG-400 UNIT TABLET PO SCH (09:26)
[2020-12-13] MEDS: CETIRIZINE 10 MG TABLET PO SCH (09:26)
[2020-12-13] MEDS: MIRABEGRON 50 MG PO SCH (09:26)
[2020-12-13] MEDS: MOMETASONE 50 MCG NASAL SPRAY 17 GM BOTTLE BOTH NARES SCH ×2 (09:26→21:20)
[2020-12-13] MEDS: CYANOCOBALAMIN 500 MCG TABLET PO SCH (09:26)
[2020-12-13] MEDS: DOCUSATE SODIUM 100 MG CAPSULE PO SCH ×2 (09:26→21:20)
[2020-12-13] MEDS: ENOXAPARIN 40 MG/0.4 ML SYRINGE SUBCUT SCH (11:02)
[2020-12-13] MEDS ORDERED: FUROSEMIDE 40 MG/4 ML VIAL IV ONE (16:06)
[2020-12-13] MEDS: MEROPENEM 500 MG in SODIUM CHLORIDE 0.9% 100 ML IV SCH ×2 (17:23→23:30)
[2020-12-14] MEDS: ALBUTEROL INHALER 18 GM INH SCH ×4 (01:15→18:23)
[2020-12-14] MEDS: ALBUTEROL/IPRATROPIUM 3 ML NEB RESP TX SCH ×6 (03:35→23:55)
[2020-12-14] MEDS: methylPREDNISolone SOD SUC 40 MG/1 ML VIAL IV SCH ×3 (05:00→18:23)
[2020-12-14] MEDS: MEROPENEM 500 MG in SODIUM CHLORIDE 0.9% 100 ML IV SCH ×4 (05:05→23:22)
[2020-12-14] MEDS: ACETYLCYSTEINE 20% 800 MG/4 ML VIAL RESP TX SCH ×3 (07:13→23:55)
[2020-12-14] MEDS: ARFORMOTEROL 15 MCG/2 ML NEB RESP TX SCH ×2 (07:13→19:08)
[2020-12-14] MEDS: ESTRADIOL 2 MG TABLET PO SCH (09:53)
[2020-12-14] MEDS: TOPIRAMATE 100 MG TABLET PO SCH ×2 (09:53→20:35)
[2020-12-14] MEDS: BENZONATATE 100 MG CAPSULE PO SCH ×3 (09:53→20:29)
[2020-12-14] MEDS: THEOPHYLLINE ER 300 MG TABLET PO SCH ×2 (09:53→20:30)
[2020-12-14] MEDS: CYANOCOBALAMIN 500 MCG TABLET PO SCH (09:53)
[2020-12-14] MEDS: CALCIUM (CARBONATE)/VITAMIN D 600 MG-400 UNIT TABLET PO SCH (09:53)
[2020-12-14] MEDS: CETIRIZINE 10 MG TABLET PO SCH (09:53)
[2020-12-14] MEDS: DOCUSATE SODIUM 100 MG CAPSULE PO SCH ×2 (09:54→20:35)
[2020-12-14] MEDS: CHOLECALCIFEROL 1,000 UNIT TABLET PO SCH (09:54)
[2020-12-14] MEDS: ASCORBIC ACID 500 MG TABLET PO SCH ×2 (09:54→20:31)
[2020-12-14] MEDS: POTASSIUM CHLORIDE 10 MEQ TABLET PO SCH ×2 (09:54→20:29)
[2020-12-14] MEDS: ZINC GLUCONATE 50 MG TABLET PO SCH (09:54)
[2020-12-14] MEDS: LOSARTAN 25 MG TABLET PO SCH (09:54)
[2020-12-14] MEDS: FLUoxetine 20 MG CAPSULE PO SCH (09:54)
[2020-12-14] MEDS: FAMOTIDINE 20 MG TABLET PO SCH ×2 (09:54→20:33)
[2020-12-14] MEDS: VITAMIN E 400 UNIT CAPSULE PO SCH (09:54)
[2020-12-14] MEDS: MOMETASONE 50 MCG NASAL SPRAY 17 GM BOTTLE BOTH NARES SCH ×2 (09:55→20:35)
[2020-12-14] MEDS: MIRABEGRON 50 MG PO SCH (09:55)
[2020-12-14] MEDS: ENOXAPARIN 40 MG/0.4 ML SYRINGE SUBCUT SCH (10:59)
[2020-12-14 15:32] LABS: Calcium 9.2 MG/DL (8.5-10.1); Osmolality,Calculated 277.8 MOS/KG (273-304); Potassium 4.4 MMOL/L (3.5-5.1)
[2020-12-14 17:32] LABS: Bilirubin,Urine Negative (Negative); Blood, Urine Negative (Negative); Glucose,Urine (UA) Negative (Negative); Hyaline Casts,Urine 6 /LPF (0-3); Ketones,Urine Negative (Negative); Mucus,Urine Occasional /LPF (Occasional); Nitrite,Urine Negative (Negative); Protein,Urine Negative; RBC,Urine 4 /HPF (0-4); Squamous Epithelial Cell,Urine Occasional /HPF (0-10); Urine Appearance CLEAR (Clear); Urine Color Yellow (Yellow); Urine Specific Gravity 1.021 (1.001-1.035)
[2020-12-14 18:07] LABS: ABG Base Excess -0.6 MMOL/L (-2.5-2.5); ABG HCO3 24.5 MMOL/L (20-26); ABG Oxygen Saturation 88.9 % (95-100); ABG PCO2 42.2 MM HG (35-48); ABG PH 7.382 (7.35-7.45); ABG PO2 59.2 MM HG (80-95); ABG TCO2 25.8 MMOL/L (23-27)
[2020-12-14] MEDS: ALPRAZolam 0.25 MG TABLET PO PRN (20:31)
[2020-12-15] MEDS: methylPREDNISolone SOD SUC 40 MG/1 ML VIAL IV SCH ×4 (02:37→19:04)
[2020-12-15] MEDS: ALBUTEROL/IPRATROPIUM 3 ML NEB RESP TX SCH ×5 (03:35→23:52)
[2020-12-15 04:43] LABS: Basophils # 0.1 10*3/uL (0.0-0.2); Basophils % 0.6 % (0.0-0.8); Eosinophils % 0.2 % (0.00-10.9); Hemoglobin 14.1 GM/DL (12.0-16.0); Immature Granulocytes % 5.7 %; Immature Granulocytes Absolute 1.11 #; Lymphocytes # 1.2 10*3/uL (1.4-4.0); Lymphocytes % 6.1 % (21.3-54.2); Mean Corpuscular Volume 94.6 FL (87-102); Mean Platelet Volume 9.9 FL (9.6-12.0); Monocytes % 5.2 % (1.7-12.7); Neutrophils % 82.2 % (38.7-73.9); Platelet Count 278 T/CUMM (130-400); Red Blood Count 4.65 MC/CUMM (3.8-5.5); Red Cell Distribution Width 15.8 % (9.3-17.3); White Blood Count 19.4 T/CUMM (4-12)
[2020-12-15 05:16] LABS: Calcium 8.5 MG/DL (8.5-10.1); Eosinophils 1 % (0-10); Lymphocytes 4 % (20-55); Osmolality,Calculated 282.5 MOS/KG (273-304); Platelet Estimate Adequate; Segmented Neutrophils 92 % (50-85); Total Cells Counted 100
[2020-12-15 05:17] LABS: Hypochromasia Slight; Microcytosis Slight
[2020-12-15] MEDS: MEROPENEM 500 MG in SODIUM CHLORIDE 0.9% 100 ML IV SCH ×4 (05:43→23:05)
[2020-12-15] MEDS: ACETYLCYSTEINE 20% 800 MG/4 ML VIAL RESP TX SCH ×3 (07:25→23:52)
[2020-12-15] MEDS: ARFORMOTEROL 15 MCG/2 ML NEB RESP TX SCH ×2 (07:25→19:21)
[2020-12-15] MEDS: CHOLECALCIFEROL 1,000 UNIT TABLET PO SCH (08:10)
[2020-12-15] MEDS: VITAMIN E 400 UNIT CAPSULE PO SCH (08:10)
[2020-12-15] MEDS: CETIRIZINE 10 MG TABLET PO SCH (08:10)
[2020-12-15] MEDS: ZINC GLUCONATE 50 MG TABLET PO SCH (08:10)
[2020-12-15] MEDS: THEOPHYLLINE ER 300 MG TABLET PO SCH ×2 (08:10→20:15)
[2020-12-15] MEDS: CALCIUM (CARBONATE)/VITAMIN D 600 MG-400 UNIT TABLET PO SCH (08:11)
[2020-12-15] MEDS: CYANOCOBALAMIN 500 MCG TABLET PO SCH (08:13)
[2020-12-15] MEDS: TOPIRAMATE 100 MG TABLET PO SCH ×2 (08:13→20:10)
[2020-12-15] MEDS: ESTRADIOL 2 MG TABLET PO SCH (08:13)
[2020-12-15] MEDS: DOCUSATE SODIUM 100 MG CAPSULE PO SCH ×2 (08:14→20:13)
[2020-12-15] MEDS: SULFAMETHOX/TRIMETHOPRIM 800-160 MG TABLET PO SCH (08:14)
[2020-12-15] MEDS: FLUoxetine 20 MG CAPSULE PO SCH (08:14)
[2020-12-15] MEDS: LOSARTAN 25 MG TABLET PO SCH (08:14)
[2020-12-15] MEDS: FAMOTIDINE 20 MG TABLET PO SCH ×2 (08:14→20:12)
[2020-12-15] MEDS: ASCORBIC ACID 500 MG TABLET PO SCH ×2 (08:14→20:12)
[2020-12-15] MEDS: MIRABEGRON 50 MG PO SCH (08:21)
[2020-12-15] MEDS: MOMETASONE 50 MCG NASAL SPRAY 17 GM BOTTLE BOTH NARES SCH ×2 (08:22→20:16)
[2020-12-15] MEDS: POTASSIUM CHLORIDE 10 MEQ TABLET PO SCH ×2 (08:22→20:14)
[2020-12-15] MEDS: ALBUTEROL INHALER 18 GM INH SCH ×3 (08:39→14:38)
[2020-12-15] MEDS: BENZONATATE 100 MG CAPSULE PO SCH ×3 (08:43→20:15)
[2020-12-15] MEDS: ALPRAZolam 0.25 MG TABLET PO PRN ×2 (09:58→19:04)
[2020-12-15] MEDS ORDERED: BISACODYL 10 MG SUPP RECTAL ONE (15:50)
[2020-12-15] MEDS ORDERED: POLYETHYLENE GLYCOL POWDER 17 GM PACK PO PRN (16:26)
[2020-12-15] MEDS: ENOXAPARIN 40 MG/0.4 ML SYRINGE SUBCUT SCH (23:05)
[2020-12-16] MEDS: methylPREDNISolone SOD SUC 40 MG/1 ML VIAL IV SCH ×5 (01:43→20:24)
[2020-12-16 04:10] LABS: Basophils # 0.1 10*3/uL (0.0-0.2); Basophils % 0.3 % (0.0-0.8); Eosinophils % 0.2 % (0.00-10.9); Hemoglobin 13.6 GM/DL (12.0-16.0); Immature Granulocytes % 4.5 %; Immature Granulocytes Absolute 0.83 #; Lymphocytes # 0.8 10*3/uL (1.4-4.0); Lymphocytes % 4.3 % (21.3-54.2); Mean Corpuscular HGB Conc 32.4 GM/DL (32-36); Mean Corpuscular Volume 93.1 FL (87-102); Mean Platelet Volume 9.7 FL (9.6-12.0); Monocytes % 4.4 % (1.7-12.7); Neutrophils % 86.3 % (38.7-73.9); Platelet Count 277 T/CUMM (130-400); Red Blood Count 4.51 MC/CUMM (3.8-5.5); Red Cell Distribution Width 15.6 % (9.3-17.3); White Blood Count 18.6 T/CUMM (4-12)
[2020-12-16 04:31] LABS: Band Neutrophils 1 % (0-10); Lymphocytes 5 % (20-55); Platelet Estimate Adequate; Segmented Neutrophils 89 % (50-85); Total Cells Counted 100
[2020-12-16 04:34] LABS: Calcium 8.4 MG/DL (8.5-10.1); Osmolality,Calculated 271.4 MOS/KG (273-304); Potassium 3.9 MMOL/L (3.5-5.1)
[2020-12-16] MEDS: ALBUTEROL/IPRATROPIUM 3 ML NEB RESP TX SCH ×6 (04:52→23:50)
[2020-12-16 04:54] LABS: ABG Base Excess -0.6 MMOL/L (-2.5-2.5); ABG HCO3 23.5 MMOL/L (20-26); ABG Oxygen Saturation 94.5 % (95-100); ABG PCO2 37.1 MM HG (35-48); ABG PO2 73.8 MM HG (80-95); ABG TCO2 24.7 MMOL/L (23-27)
[2020-12-16] MEDS: MEROPENEM 500 MG in SODIUM CHLORIDE 0.9% 100 ML IV SCH ×4 (05:10→23:05)
[2020-12-16] MEDS: ACETYLCYSTEINE 20% 800 MG/4 ML VIAL RESP TX SCH ×3 (07:46→23:50)
[2020-12-16] MEDS: ARFORMOTEROL 15 MCG/2 ML NEB RESP TX SCH ×2 (07:46→18:33)
[2020-12-16] MEDS: ALPRAZolam 0.25 MG TABLET PO PRN (08:56)
[2020-12-16] MEDS: DOCUSATE SODIUM 100 MG CAPSULE PO SCH ×2 (08:56→21:08)
[2020-12-16] MEDS: BENZONATATE 100 MG CAPSULE PO SCH ×3 (08:56→21:12)
[2020-12-16] MEDS: ESTRADIOL 2 MG TABLET PO SCH (08:56)
[2020-12-16] MEDS: CYANOCOBALAMIN 500 MCG TABLET PO SCH (08:57)
[2020-12-16] MEDS: THEOPHYLLINE ER 300 MG TABLET PO SCH ×2 (08:57→21:13)
[2020-12-16] MEDS: VITAMIN E 400 UNIT CAPSULE PO SCH (08:57)
[2020-12-16] MEDS: POTASSIUM CHLORIDE 10 MEQ TABLET PO SCH ×2 (08:57→21:09)
[2020-12-16] MEDS: SULFAMETHOX/TRIMETHOPRIM 800-160 MG TABLET PO SCH (08:58)
[2020-12-16] MEDS: ZINC GLUCONATE 50 MG TABLET PO SCH (08:58)
[2020-12-16] MEDS: CALCIUM (CARBONATE)/VITAMIN D 600 MG-400 UNIT TABLET PO SCH (08:58)
[2020-12-16] MEDS: CETIRIZINE 10 MG TABLET PO SCH (08:58)
[2020-12-16] MEDS: FAMOTIDINE 20 MG TABLET PO SCH ×2 (08:58→21:12)
[2020-12-16] MEDS: CHOLECALCIFEROL 1,000 UNIT TABLET PO SCH (08:59)
[2020-12-16] MEDS: TOPIRAMATE 100 MG TABLET PO SCH ×2 (08:59→21:13)
[2020-12-16] MEDS: FLUoxetine 20 MG CAPSULE PO SCH (08:59)
[2020-12-16] MEDS: ASCORBIC ACID 500 MG TABLET PO SCH ×2 (09:00→21:13)
[2020-12-16] MEDS: MIRABEGRON 50 MG PO SCH (13:08)
[2020-12-16] MEDS: MOMETASONE 50 MCG NASAL SPRAY 17 GM BOTTLE BOTH NARES SCH ×2 (13:09→21:11)
[2020-12-16] MEDS: ENOXAPARIN 40 MG/0.4 ML SYRINGE SUBCUT SCH ×2 (13:10→23:00)
[2020-12-16] MEDS: ALPRAZolam 0.5 MG TABLET PO PRN (16:02)
[2020-12-17] MEDS: methylPREDNISolone SOD SUC 40 MG/1 ML VIAL IV SCH ×4 (02:24→20:16)
[2020-12-17] MEDS: ALBUTEROL/IPRATROPIUM 3 ML NEB RESP TX SCH ×6 (03:48→23:20)
[2020-12-17] MEDS: MEROPENEM 500 MG in SODIUM CHLORIDE 0.9% 100 ML IV SCH ×4 (05:09→23:25)
[2020-12-17 06:14] LABS: Basophils # 0.1 10*3/uL (0.0-0.2); Basophils % 0.4 % (0.0-0.8); Eosinophils # 0.1 10*3/uL (0.0-0.87); Eosinophils % 0.4 % (0.00-10.9); Hematocrit 43.6 VOL% (35.7-47.0); Hemoglobin 13.7 GM/DL (12.0-16.0); Immature Granulocytes % 3.6 %; Immature Granulocytes Absolute 0.61 #; Lymphocytes # 1.4 10*3/uL (1.4-4.0); Lymphocytes % 8.6 % (21.3-54.2); Mean Corpuscular HGB Conc 31.4 GM/DL (32-36); Mean Corpuscular Volume 95.2 FL (87-102); Mean Platelet Volume 9.7 FL (9.6-12.0); Monocytes % 6.6 % (1.7-12.7); Neutrophils % 80.4 % (38.7-73.9); Platelet Count 250 T/CUMM (130-400); Red Blood Count 4.58 MC/CUMM (3.8-5.5); Red Cell Distribution Width 15.6 % (9.3-17.3); White Blood Count 16.8 T/CUMM (4-12)
[2020-12-17 06:18] LABS: Calcium 8.3 MG/DL (8.5-10.1); Osmolality,Calculated 271.1 MOS/KG (273-304); Potassium 4.6 MMOL/L (3.5-5.1)
[2020-12-17 06:49] LABS: Lymphocytes 13 % (20-55); Segmented Neutrophils 82 % (50-85); Total Cells Counted 100
[2020-12-17 06:50] LABS: Hypochromasia Slight; Microcytosis Slight; Platelet Estimate Normal
[2020-12-17 06:51] LABS: Atypical Lymphocytes Few
[2020-12-17] MEDS: ARFORMOTEROL 15 MCG/2 ML NEB RESP TX SCH ×2 (07:24→19:15)
[2020-12-17] MEDS: ACETYLCYSTEINE 20% 800 MG/4 ML VIAL RESP TX SCH ×3 (07:24→23:20)
[2020-12-17] MEDS: ZINC GLUCONATE 50 MG TABLET PO SCH (08:29)
[2020-12-17] MEDS: CHOLECALCIFEROL 1,000 UNIT TABLET PO SCH (08:29)
[2020-12-17] MEDS: THEOPHYLLINE ER 300 MG TABLET PO SCH ×2 (08:30→21:31)
[2020-12-17] MEDS: ALPRAZolam 0.5 MG TABLET PO PRN ×2 (08:31→15:43)
[2020-12-17] MEDS: FLUoxetine 20 MG CAPSULE PO SCH (08:31)
[2020-12-17] MEDS: POTASSIUM CHLORIDE 10 MEQ TABLET PO SCH ×2 (08:31→21:29)
[2020-12-17] MEDS: SULFAMETHOX/TRIMETHOPRIM 800-160 MG TABLET PO SCH (08:32)
[2020-12-17] MEDS: CETIRIZINE 10 MG TABLET PO SCH (08:32)
[2020-12-17] MEDS: ASCORBIC ACID 500 MG TABLET PO SCH ×2 (08:33→21:31)
[2020-12-17] MEDS: TOPIRAMATE 100 MG TABLET PO SCH ×2 (08:33→21:31)
[2020-12-17] MEDS: DOCUSATE SODIUM 100 MG CAPSULE PO SCH ×2 (08:33→21:29)
[2020-12-17] MEDS: ESTRADIOL 2 MG TABLET PO SCH (08:34)
[2020-12-17] MEDS: CYANOCOBALAMIN 500 MCG TABLET PO SCH (08:34)
[2020-12-17] MEDS: CALCIUM (CARBONATE)/VITAMIN D 600 MG-400 UNIT TABLET PO SCH (08:34)
[2020-12-17] MEDS: BENZONATATE 100 MG CAPSULE PO SCH ×3 (08:34→21:30)
[2020-12-17] MEDS: VITAMIN E 400 UNIT CAPSULE PO SCH (08:35)
[2020-12-17] MEDS: FAMOTIDINE 20 MG TABLET PO SCH ×2 (08:35→21:30)
[2020-12-17] MEDS: MOMETASONE 50 MCG NASAL SPRAY 17 GM BOTTLE BOTH NARES SCH ×2 (10:50→21:34)
[2020-12-17] MEDS: ENOXAPARIN 40 MG/0.4 ML SYRINGE SUBCUT SCH ×2 (13:14→23:21)
[2020-12-17] MEDS: DILTIAZEM 30 MG TABLET PO SCH ×2 (14:48→21:28)
[2020-12-17] MEDS: ALPRAZolam 0.5 MG TABLET PO SCH (23:21)
[2020-12-18] MEDS: methylPREDNISolone SOD SUC 40 MG/1 ML VIAL IV SCH ×4 (03:10→20:28)
[2020-12-18] MEDS: ALBUTEROL/IPRATROPIUM 3 ML NEB RESP TX SCH ×6 (03:45→23:49)
[2020-12-18] MEDS: MEROPENEM 500 MG in SODIUM CHLORIDE 0.9% 100 ML IV SCH ×4 (05:11→22:35)
[2020-12-18 05:43] LABS: Basophils # 0.1 10*3/uL (0.0-0.2); Basophils % 0.4 % (0.0-0.8); Eosinophils % 0.1 % (0.00-10.9); Hematocrit 42.1 VOL% (35.7-47.0); Hemoglobin 13.5 GM/DL (12.0-16.0); Immature Granulocytes % 3.8 %; Immature Granulocytes Absolute 0.64 #; Lymphocytes # 0.7 10*3/uL (1.4-4.0); Lymphocytes % 4.2 % (21.3-54.2); Mean Corpuscular HGB Conc 32.1 GM/DL (32-36); Mean Platelet Volume 10.1 FL (9.6-12.0); Monocytes % 4.4 % (1.7-12.7); Neutrophils % 87.1 % (38.7-73.9); Platelet Count 253 T/CUMM (130-400); Red Blood Count 4.48 MC/CUMM (3.8-5.5); Red Cell Distribution Width 15.5 % (9.3-17.3); White Blood Count 16.8 T/CUMM (4-12)
[2020-12-18 06:01] LABS: Calcium 8.4 MG/DL (8.5-10.1); Osmolality,Calculated 276.8 MOS/KG (273-304); Potassium 4.1 MMOL/L (3.5-5.1)
[2020-12-18 06:28] LABS: Lymphocytes 6 % (20-55); Platelet Estimate Normal; Segmented Neutrophils 91 % (50-85); Total Cells Counted 100
[2020-12-18] MEDS: ALPRAZolam 0.5 MG TABLET PO SCH ×3 (06:30→22:35)
[2020-12-18] MEDS: ARFORMOTEROL 15 MCG/2 ML NEB RESP TX SCH ×2 (07:20→18:05)
[2020-12-18] MEDS: ACETYLCYSTEINE 20% 800 MG/4 ML VIAL RESP TX SCH ×3 (07:20→23:49)
[2020-12-18] MEDS: SULFAMETHOX/TRIMETHOPRIM 800-160 MG TABLET PO SCH (08:37)
[2020-12-18] MEDS: VITAMIN E 400 UNIT CAPSULE PO SCH (08:37)
[2020-12-18] MEDS: CHOLECALCIFEROL 1,000 UNIT TABLET PO SCH (08:37)
[2020-12-18] MEDS: ASCORBIC ACID 500 MG TABLET PO SCH ×2 (08:37→20:26)
[2020-12-18] MEDS: DOCUSATE SODIUM 100 MG CAPSULE PO SCH ×2 (08:37→20:27)
[2020-12-18] MEDS: FLUoxetine 20 MG CAPSULE PO SCH (08:38)
[2020-12-18] MEDS: DILTIAZEM 30 MG TABLET PO SCH ×3 (08:38→20:26)
[2020-12-18] MEDS: CALCIUM (CARBONATE)/VITAMIN D 600 MG-400 UNIT TABLET PO SCH (08:38)
[2020-12-18] MEDS: FAMOTIDINE 20 MG TABLET PO SCH ×2 (08:38→20:27)
[2020-12-18] MEDS: ZINC GLUCONATE 50 MG TABLET PO SCH (08:38)
[2020-12-18] MEDS: THEOPHYLLINE ER 300 MG TABLET PO SCH ×2 (08:38→20:26)
[2020-12-18] MEDS: BENZONATATE 100 MG CAPSULE PO SCH ×3 (08:38→20:27)
[2020-12-18] MEDS: CETIRIZINE 10 MG TABLET PO SCH (08:38)
[2020-12-18] MEDS: ESTRADIOL 2 MG TABLET PO SCH (08:39)
[2020-12-18] MEDS: TOPIRAMATE 100 MG TABLET PO SCH ×2 (08:39→20:27)
[2020-12-18] MEDS: POTASSIUM CHLORIDE 10 MEQ TABLET PO SCH ×2 (08:39→20:27)
[2020-12-18] MEDS: CYANOCOBALAMIN 500 MCG TABLET PO SCH (09:00)
[2020-12-18] MEDS: MOMETASONE 50 MCG NASAL SPRAY 17 GM BOTTLE BOTH NARES SCH ×2 (09:00→21:10)
[2020-12-18] MEDS: ENOXAPARIN 40 MG/0.4 ML SYRINGE SUBCUT SCH ×2 (10:56→22:35)
[2020-12-18] MEDS: SODIUM CHLORIDE 0.9% 1,000 ML IV SCH (17:47)
[2020-12-18] MEDS: MELATONIN 3 MG TABLET PO PRN (20:27)
[2020-12-19] MEDS: methylPREDNISolone SOD SUC 40 MG/1 ML VIAL IV SCH ×5 (01:38→23:31)
[2020-12-19] MEDS: ALBUTEROL/IPRATROPIUM 3 ML NEB RESP TX SCH ×5 (03:30→19:36)
[2020-12-19] MEDS: SODIUM CHLORIDE 0.9% 1,000 ML IV SCH ×3 (03:53→14:04)
[2020-12-19] MEDS: MEROPENEM 500 MG in SODIUM CHLORIDE 0.9% 100 ML IV SCH ×4 (04:44→23:31)
[2020-12-19 05:05] LABS: Basophils # 0.1 10*3/uL (0.0-0.2); Basophils % 0.4 % (0.0-0.8); Eosinophils % 0.1 % (0.00-10.9); Hematocrit 41.5 VOL% (35.7-47.0); Hemoglobin 13.4 GM/DL (12.0-16.0); Immature Granulocytes % 4.4 %; Immature Granulocytes Absolute 0.83 #; Lymphocytes % 5.2 % (21.3-54.2); Mean Corpuscular HGB Conc 32.3 GM/DL (32-36); Mean Corpuscular Volume 94.7 FL (87-102); Mean Platelet Volume 10.2 FL (9.6-12.0); Monocytes % 5.5 % (1.7-12.7); Neutrophils % 84.4 % (38.7-73.9); Platelet Count 256 T/CUMM (130-400); Red Blood Count 4.38 MC/CUMM (3.8-5.5); Red Cell Distribution Width 15.6 % (9.3-17.3); White Blood Count 18.8 T/CUMM (4-12)
[2020-12-19 05:28] LABS: Band Neutrophils 2 % (0-10); Hypochromasia 1+; Lymphocytes 2 % (20-55); Microcytosis 1+; Segmented Neutrophils 93 % (50-85); Total Cells Counted 100
[2020-12-19 05:29] LABS: Platelet Estimate Normal
[2020-12-19 05:36] LABS: Calcium 8.4 MG/DL (8.5-10.1); Osmolality,Calculated 279.5 MOS/KG (273-304); Potassium 4.2 MMOL/L (3.5-5.1)
[2020-12-19] MEDS: ACETYLCYSTEINE 20% 800 MG/4 ML VIAL RESP TX SCH (07:05)
[2020-12-19] MEDS: ARFORMOTEROL 15 MCG/2 ML NEB RESP TX SCH ×2 (07:05→19:36)
[2020-12-19] MEDS: SULFAMETHOX/TRIMETHOPRIM 800-160 MG TABLET PO SCH (10:12)
[2020-12-19] MEDS: CALCIUM (CARBONATE)/VITAMIN D 600 MG-400 UNIT TABLET PO SCH (10:12)
[2020-12-19] MEDS: FAMOTIDINE 20 MG TABLET PO SCH ×2 (10:13→20:26)
[2020-12-19] MEDS: POTASSIUM CHLORIDE 10 MEQ TABLET PO SCH ×2 (10:13→20:26)
[2020-12-19] MEDS: MOMETASONE 50 MCG NASAL SPRAY 17 GM BOTTLE BOTH NARES SCH ×2 (10:13→20:34)
[2020-12-19] MEDS: DOCUSATE SODIUM 100 MG CAPSULE PO SCH ×2 (10:13→20:26)
[2020-12-19] MEDS: ESTRADIOL 2 MG TABLET PO SCH (10:13)
[2020-12-19] MEDS: DILTIAZEM 30 MG TABLET PO SCH ×3 (10:13→20:27)
[2020-12-19] MEDS: BENZONATATE 100 MG CAPSULE PO SCH ×3 (10:14→20:26)
[2020-12-19] MEDS: CYANOCOBALAMIN 500 MCG TABLET PO SCH (10:14)
[2020-12-19] MEDS: FLUoxetine 20 MG CAPSULE PO SCH (10:14)
[2020-12-19] MEDS: CHOLECALCIFEROL 1,000 UNIT TABLET PO SCH (10:14)
[2020-12-19] MEDS: VITAMIN E 400 UNIT CAPSULE PO SCH (10:14)
[2020-12-19] MEDS: ASCORBIC ACID 500 MG TABLET PO SCH ×2 (10:14→20:25)
[2020-12-19] MEDS: THEOPHYLLINE ER 300 MG TABLET PO SCH ×2 (10:14→20:26)
[2020-12-19] MEDS: TOPIRAMATE 100 MG TABLET PO SCH ×2 (10:14→20:25)
[2020-12-19] MEDS: CETIRIZINE 10 MG TABLET PO SCH (10:15)
[2020-12-19] MEDS: ALPRAZolam 0.5 MG TABLET PO SCH ×4 (10:15→23:15)
[2020-12-19] MEDS: ZINC GLUCONATE 50 MG TABLET PO SCH (10:15)
[2020-12-19] MEDS: ENOXAPARIN 40 MG/0.4 ML SYRINGE SUBCUT SCH ×2 (12:02→23:31)
[2020-12-19] MEDS ORDERED: FUROSEMIDE 40 MG/4 ML VIAL IV ONE (12:11)
[2020-12-19] MEDS: MORPHINE 2 MG/1 ML SYRINGE IV PRN ×3 (12:26→23:15)
[2020-12-19] MEDS ORDERED: METOPROLOL TARTRATE 5 MG/5 ML VIAL IV ONE (12:28)
[2020-12-19] MEDS ORDERED: METOPROLOL TARTRATE 5 MG/5 ML VIAL IV PRN (14:24)
[2020-12-19] MEDS: MELATONIN 3 MG TABLET PO PRN (20:26)
[2020-12-19] MEDS: METOPROLOL TARTRATE 5 MG/5 ML VIAL IV PRN (23:52)
[2020-12-20] MEDS: ALBUTEROL/IPRATROPIUM 3 ML NEB RESP TX SCH ×6 (00:10→19:40)
[2020-12-20] MEDS: ALPRAZolam 0.5 MG TABLET PO SCH ×2 (05:16→14:16)
[2020-12-20] MEDS: MEROPENEM 500 MG in SODIUM CHLORIDE 0.9% 100 ML IV SCH ×4 (05:16→23:11)
[2020-12-20 05:26] LABS: Basophils # 0.1 10*3/uL (0.0-0.2); Basophils % 0.5 % (0.0-0.8); Hematocrit 43.1 VOL% (35.7-47.0); Immature Granulocytes % 4.3 %; Immature Granulocytes Absolute 0.83 #; Lymphocytes # 0.9 10*3/uL (1.4-4.0); Lymphocytes % 4.5 % (21.3-54.2); Mean Corpuscular HGB Conc 32.5 GM/DL (32-36); Mean Corpuscular Volume 94.1 FL (87-102); Mean Platelet Volume 10.3 FL (9.6-12.0); Monocytes % 3.1 % (1.7-12.7); Neutrophils % 87.6 % (38.7-73.9); Platelet Count 294 T/CUMM (130-400); Red Blood Count 4.58 MC/CUMM (3.8-5.5); Red Cell Distribution Width 15.9 % (9.3-17.3); White Blood Count 19.4 T/CUMM (4-12)
[2020-12-20] MEDS: methylPREDNISolone SOD SUC 40 MG/1 ML VIAL IV SCH ×3 (05:30→21:31)
[2020-12-20 05:47] LABS: Potassium 4.4 MMOL/L (3.5-5.1)
[2020-12-20 05:48] LABS: Lymphocytes 4 % (20-55); Platelet Estimate Normal; Segmented Neutrophils 93 % (50-85)
[2020-12-20 05:49] LABS: Total Cells Counted 100
[2020-12-20] MEDS: ARFORMOTEROL 15 MCG/2 ML NEB RESP TX SCH ×2 (07:41→19:40)
[2020-12-20] MEDS: DILTIAZEM 30 MG TABLET PO SCH ×3 (08:50→20:56)
[2020-12-20] MEDS: DOCUSATE SODIUM 100 MG CAPSULE PO SCH ×2 (08:50→21:11)
[2020-12-20] MEDS: MOMETASONE 50 MCG NASAL SPRAY 17 GM BOTTLE BOTH NARES SCH (08:50)
[2020-12-20] MEDS: SULFAMETHOX/TRIMETHOPRIM 800-160 MG TABLET PO SCH (08:50)
[2020-12-20] MEDS: BENZONATATE 100 MG CAPSULE PO SCH (08:50)
[2020-12-20] MEDS: ASCORBIC ACID 500 MG TABLET PO SCH ×2 (08:50→20:56)
[2020-12-20] MEDS: FLUoxetine 20 MG CAPSULE PO SCH (08:50)
[2020-12-20] MEDS: POTASSIUM CHLORIDE 10 MEQ TABLET PO SCH ×2 (08:50→20:56)
[2020-12-20] MEDS: CYANOCOBALAMIN 500 MCG TABLET PO SCH (08:50)
[2020-12-20] MEDS: FAMOTIDINE 20 MG TABLET PO SCH ×2 (08:50→20:56)
[2020-12-20] MEDS: THEOPHYLLINE ER 300 MG TABLET PO SCH ×2 (08:50→20:56)
[2020-12-20] MEDS: VITAMIN E 400 UNIT CAPSULE PO SCH (08:50)
[2020-12-20] MEDS: CHOLECALCIFEROL 1,000 UNIT TABLET PO SCH (08:50)
[2020-12-20] MEDS: ESTRADIOL 2 MG TABLET PO SCH (08:50)
[2020-12-20] MEDS: TOPIRAMATE 100 MG TABLET PO SCH ×2 (08:50→20:56)
[2020-12-20] MEDS: CALCIUM (CARBONATE)/VITAMIN D 600 MG-400 UNIT TABLET PO SCH (08:50)
[2020-12-20] MEDS: CETIRIZINE 10 MG TABLET PO SCH (08:51)
[2020-12-20] MEDS: ZINC GLUCONATE 50 MG TABLET PO SCH (08:51)
[2020-12-20] MEDS ORDERED: ETOMIDATE 20 MG/10 ML VIAL IV ONE ×2 (12:43→12:58)
[2020-12-20] MEDS ORDERED: SUCCINYLCHOLINE 200 MG/10 ML VIAL ONE (12:43)
[2020-12-20] MEDS ORDERED: ALBUTEROL 2.5 MG/3 ML NEB RESP TX PRN (12:53)
[2020-12-20] MEDS ORDERED: SUCCINYLCHOLINE 200 MG/10 ML VIAL IV ONE (12:59)
[2020-12-20] MEDS: fentaNYL INJ 1,250 MCG in SODIUM CHLORIDE 0.9% 225 ML IV PRN (13:30)
[2020-12-20 13:47] LABS: ABG Base Excess 1.4 MMOL/L (-2.5-2.5); ABG HCO3 25.1 MMOL/L (20-26); ABG Oxygen Saturation 74.2 % (95-100); ABG PCO2 53.3 MM HG (35-48); ABG PH 7.337 (7.35-7.45); ABG PO2 46.3 MM HG (80-95); ABG TCO2 25.1 MMOL/L (23-27)
[2020-12-20] MEDS ORDERED: MIDAZOLAM 2 MG/2 ML VIAL ONE (13:49)
[2020-12-20] MEDS: ENOXAPARIN 40 MG/0.4 ML SYRINGE SUBCUT SCH ×2 (14:14→23:11)
[2020-12-20] MEDS: MIDAZOLAM 100 MG in SODIUM CHLORIDE 0.9% 80 ML IV PRN (14:16)
[2020-12-20] MEDS ORDERED: MIDAZOLAM 2 MG/2 ML VIAL IV ONE (14:25)
[2020-12-20] MEDS: ROCURONIUM 500 MG in SODIUM CHLORIDE 0.9% 500 ML IV PRN (14:30)
[2020-12-21] MEDS: ALBUTEROL/IPRATROPIUM 3 ML NEB RESP TX SCH ×6 (00:09→18:41)
[2020-12-21] MEDS: fentaNYL INJ 1,250 MCG in SODIUM CHLORIDE 0.9% 225 ML IV PRN ×3 (00:32→23:35)
[2020-12-21] MEDS ORDERED: NOREPINEPHRINE 4 MG/4 ML VIAL IV ONE (00:38)
[2020-12-21] MEDS: ROCURONIUM 500 MG in SODIUM CHLORIDE 0.9% 500 ML IV PRN ×2 (02:20→19:45)
[2020-12-21 04:13] LABS: ABG HCO3 27.1 MMOL/L (20-26); ABG Oxygen Saturation 89.9 % (95-100); ABG PCO2 60.1 MM HG (35-48); ABG PH 7.272 (7.35-7.45); ABG PO2 66.2 MM HG (80-95); ABG TCO2 28.9 MMOL/L (23-27)
[2020-12-21] MEDS: NOREPINEPHRINE 8 MG in SODIUM CHLORIDE 0.9% 242 ML IV PRN (04:16)
[2020-12-21 04:53] LABS: Basophils # 0.1 10*3/uL (0.0-0.2); Basophils % 0.4 % (0.0-0.8); Immature Granulocytes % 5.4 %; Immature Granulocytes Absolute 1.15 #; Lymphocytes # 0.8 10*3/uL (1.4-4.0); Lymphocytes % 3.5 % (21.3-54.2); Mean Corpuscular HGB Conc 30.2 GM/DL (32-36); Mean Corpuscular Volume 98.6 FL (87-102); Mean Platelet Volume 10.1 FL (9.6-12.0); Monocytes % 4.9 % (1.7-12.7); Neutrophils % 85.8 % (38.7-73.9); Platelet Count 306 T/CUMM (130-400); Red Blood Count 4.36 MC/CUMM (3.8-5.5); White Blood Count 21.4 T/CUMM (4-12)
[2020-12-21 05:08] LABS: Bilirubin,Total 0.4 MG/DL (0.20-1.00); Calcium 8.4 MG/DL (8.5-10.1); Osmolality,Calculated 289.7 MOS/KG (273-304); Potassium 5.1 MMOL/L (3.5-5.1); Total Protein 5.6 G/DL (6.4-8.2)
[2020-12-21 05:12] LABS: Lymphocytes 3 % (20-55); Platelet Estimate Adequate; Segmented Neutrophils 95 % (50-85); Total Cells Counted 100
[2020-12-21] MEDS: methylPREDNISolone SOD SUC 40 MG/1 ML VIAL IV SCH ×3 (05:53→22:26)
[2020-12-21] MEDS: ARFORMOTEROL 15 MCG/2 ML NEB RESP TX SCH ×2 (07:25→18:41)
[2020-12-21] MEDS: MIDAZOLAM 100 MG in SODIUM CHLORIDE 0.9% 80 ML IV PRN (08:36)
[2020-12-21] MEDS: VITAMIN E 400 UNIT CAPSULE PO SCH (08:51)
[2020-12-21] MEDS: CALCIUM (CARBONATE)/VITAMIN D 600 MG-400 UNIT TABLET PO SCH (08:51)
[2020-12-21] MEDS: CHOLECALCIFEROL 1,000 UNIT TABLET PO SCH (08:51)
[2020-12-21] MEDS: CETIRIZINE 10 MG TABLET PO SCH (08:51)
[2020-12-21] MEDS: TOPIRAMATE 100 MG TABLET PO SCH ×2 (08:51→21:27)
[2020-12-21] MEDS: ZINC GLUCONATE 50 MG TABLET PO SCH (08:52)
[2020-12-21] MEDS: THEOPHYLLINE ER 300 MG TABLET PO SCH ×2 (08:52→21:26)
[2020-12-21] MEDS: POTASSIUM CHLORIDE 10 MEQ TABLET PO SCH ×2 (08:52→21:26)
[2020-12-21] MEDS: FLUoxetine 20 MG CAPSULE PO SCH (08:53)
[2020-12-21] MEDS: ASCORBIC ACID 500 MG TABLET PO SCH ×2 (08:53→21:25)
[2020-12-21] MEDS: SULFAMETHOX/TRIMETHOPRIM 800-160 MG TABLET PO SCH (08:53)
[2020-12-21] MEDS: DOCUSATE SODIUM 100 MG/10 ML UDCUP PO SCH ×2 (09:22→21:25)
[2020-12-21] MEDS: FAMOTIDINE 20 MG TABLET PO SCH ×2 (09:22→21:26)
[2020-12-21] MEDS: CYANOCOBALAMIN 500 MCG TABLET PO SCH (09:27)
[2020-12-21] MEDS: DILTIAZEM 30 MG TABLET PO SCH ×2 (10:05→15:46)
[2020-12-21] MEDS: DESITIN 4OZ/NYSTATIN 15 GRAM MIXTURE PASTE TOP SCH ×2 (10:08→21:27)
[2020-12-21] MEDS: METOPROLOL TARTRATE 5 MG/5 ML VIAL IV PRN ×4 (10:30→23:38)
[2020-12-21] MEDS: ENOXAPARIN 40 MG/0.4 ML SYRINGE SUBCUT SCH ×2 (10:30→22:31)
[2020-12-21] MEDS: MORPHINE 2 MG/1 ML SYRINGE IV PRN (22:28)
[2020-12-22] MEDS: ALBUTEROL/IPRATROPIUM 3 ML NEB RESP TX SCH ×7 (00:38→22:30)
[2020-12-22] MEDS: ACETAMINOPHEN 325 MG TABLET PO PRN (01:17)
[2020-12-22 04:09] LABS: ABG Base Excess 1.8 MMOL/L (-2.5-2.5); ABG Oxygen Saturation 87.4 % (95-100); ABG PCO2 63.7 MM HG (35-48); ABG PH 7.291 (7.35-7.45); ABG PO2 57.2 MM HG (80-95)
[2020-12-22] MEDS ORDERED: KETOROLAC 30 MG/1 ML VIAL IV ONE (04:41)
[2020-12-22 05:02] LABS: Basophils % 0.1 % (0.0-0.8); Hematocrit 43.4 VOL% (35.7-47.0); Hemoglobin 13.3 GM/DL (12.0-16.0); Immature Granulocytes % 7.4 %; Immature Granulocytes Absolute 1.45 #; Lymphocytes # 0.6 10*3/uL (1.4-4.0); Lymphocytes % 3.1 % (21.3-54.2); Mean Corpuscular HGB Conc 30.6 GM/DL (32-36); Mean Platelet Volume 10.1 FL (9.6-12.0); Monocytes % 6.3 % (1.7-12.7); NRBC # 0.08 10*3/uL; Neutrophils % 83.1 % (38.7-73.9); Platelet Count 285 T/CUMM (130-400); Red Blood Count 4.34 MC/CUMM (3.8-5.5); White Blood Count 19.7 T/CUMM (4-12)
[2020-12-22 05:22] LABS: Calcium 8.1 MG/DL (8.5-10.1); Potassium 5.5 MMOL/L (3.5-5.1)
[2020-12-22 05:29] LABS: Lymphocytes 4 % (20-55); Nucleated Red Blood Cells 2 (0-5); Platelet Estimate Normal; Segmented Neutrophils 87 % (50-85); Total Cells Counted 100
[2020-12-22] MEDS: METOPROLOL TARTRATE 5 MG/5 ML VIAL IV PRN ×3 (05:48→21:22)
[2020-12-22] MEDS: methylPREDNISolone SOD SUC 40 MG/1 ML VIAL IV SCH ×3 (05:52→22:16)
[2020-12-22] MEDS: MIDAZOLAM 100 MG in SODIUM CHLORIDE 0.9% 80 ML IV PRN (06:01)
[2020-12-22] MEDS: ARFORMOTEROL 15 MCG/2 ML NEB RESP TX SCH ×2 (07:42→18:03)
[2020-12-22 07:56] VITALS: BP 107/83
[2020-12-22] MEDS ORDERED: SULFAMETHOX/TRIMETHOPRIM 200-40 MG/5 ML -20 ML UDCUP NG SCH (09:00)
[2020-12-22] MEDS: POTASSIUM CHLORIDE 10 MEQ TABLET PO SCH ×2 (09:36→20:46)
[2020-12-22] MEDS: CYANOCOBALAMIN 500 MCG TABLET PO SCH (09:54)
[2020-12-22] MEDS: DOCUSATE SODIUM 100 MG/10 ML UDCUP PO SCH ×2 (09:54→20:58)
[2020-12-22] MEDS: CALCIUM (CARBONATE)/VITAMIN D 600 MG-400 UNIT TABLET PO SCH (09:55)
[2020-12-22] MEDS: ZINC GLUCONATE 50 MG TABLET PO SCH (09:55)
[2020-12-22] MEDS: CEFEPIME 1,000 MG in SODIUM CHLORIDE 0.9% 100 ML IV SCH ×3 (09:55→21:00)
[2020-12-22] MEDS: CHOLECALCIFEROL 1,000 UNIT TABLET PO SCH (09:55)
[2020-12-22] MEDS: TOPIRAMATE 100 MG TABLET PO SCH ×2 (09:55→20:59)
[2020-12-22] MEDS: THEOPHYLLINE ER 300 MG TABLET PO SCH ×2 (09:55→20:59)
[2020-12-22] MEDS: FLUoxetine 20 MG CAPSULE PO SCH (09:55)
[2020-12-22] MEDS: VITAMIN E 400 UNIT CAPSULE PO SCH (09:55)
[2020-12-22] MEDS: CETIRIZINE 10 MG TABLET PO SCH (10:42)
[2020-12-22] MEDS: ASCORBIC ACID 500 MG TABLET PO SCH ×2 (10:42→20:59)
[2020-12-22] MEDS: FAMOTIDINE 20 MG TABLET PO SCH ×2 (10:42→20:58)
[2020-12-22] MEDS: DESITIN 4OZ/NYSTATIN 15 GRAM MIXTURE PASTE TOP SCH ×2 (10:43→21:01)
[2020-12-22] MEDS: fentaNYL INJ 1,250 MCG in SODIUM CHLORIDE 0.9% 225 ML IV PRN ×2 (11:06→22:33)
[2020-12-22] MEDS: ENOXAPARIN 40 MG/0.4 ML SYRINGE SUBCUT SCH (11:44)
[2020-12-22] MEDS ORDERED: SODIUM POLYSTYRENE SULFATE 15 GM/60 ML BOTTLE PO ONE (12:19)
[2020-12-22] MEDS ORDERED: POLYETHYLENE GLYCOL POWDER 17 GM PACK PO SCH (12:30)
[2020-12-22] MEDS ORDERED: VANCOMYCIN INJ 1,250 MG in SODIUM CHLORIDE 0.9% 250 ML IV SCH (15:00)
[2020-12-22] MEDS: HYDROmorphone 2 MG/1 ML VIAL IV PRN ×2 (15:05→18:51)
[2020-12-22] MEDS: NOREPINEPHRINE 8 MG in SODIUM CHLORIDE 0.9% 242 ML IV PRN (22:15)
[2020-12-23] MEDS ORDERED: METOPROLOL TARTRATE 5 MG/5 ML VIAL IV PRN (01:11)
[2020-12-23] MEDS ORDERED: DEXTROSE 50% 25 GM/50 ML SYRINGE IV ONE (01:50)
[2020-12-23] MEDS ORDERED: EPINEPHrine 1 MG/10 ML SYRINGE ONE (01:50)
[2020-12-23] MEDS ORDERED: AMIODARONE 150 MG/3 ML VIAL ONE (01:50)
[2020-12-23] MEDS ORDERED: CALCIUM CHLORIDE 1,000 MG/10 ML SYRINGE IV ONE (01:50)
[2020-12-23] MEDS ORDERED: SODIUM BICARBONATE 50 MEQ/50 ML SYRINGE IV ONE (01:50)
[2020-12-23] MEDS ORDERED: DEXTROSE 50% 25 GM/50 ML VIAL IV ONE (01:57)
[2020-12-23] MEDS ORDERED: ENOXAPARIN 40 MG/0.4 ML SYRINGE SUBCUT SCH (09:00)
== END 2020-12-23 02:10 | disposition expired | DRG 208 ==
LOC: N.TELEN → N.CC 11-30 05:59 → SUATTDRO 11-30 13:24 → N.2E 11-30 15:14 → N.3E 12-14 13:03 → N.ICU 12-14 15:04
PROVIDERS: ADMIT Family Medicine; ATTEND Family Medicine